=== PATIENT | male | born 1955 | race African-American/Black ===

== ENCOUNTER 2019-06-09 06:03 | Inpatient (IN) | payer MEDICAID ==
[2019-06-09] VITALS (51 sets, daily range): BP systolic 90–206; BP diastolic 25–107
[~2019-06-09] VITALS: Ht 182.9 cm; Wt 78.5 kg
[2019-06-09] MEDS ORDERED: DIPHENHYDRAMINE 50MG/ML VIAL IV ONE (06:45)
[2019-06-09] MEDS ORDERED: ACETAMINOPHEN 500MG TABLET PO ONE (06:45)
[2019-06-09] MEDS ORDERED: METOCLOPRAMIDE HCL 10MG/2ML VIAL IV ONE (06:45)
[2019-06-09 06:56] LABS: *AMPHETAMINES SCREEN URINE NEGATIVE (NEGATIVE); *BENZODIAZEPINES SCREEN URINE NEGATIVE (NEGATIVE)
[2019-06-09 06:57] LABS: *COCAINE SCREEN URINE PRESUMTIVE POSITIVE (NEGATIVE); CANNABINOID URINE SCREEN PRESUMTIVE POSITIVE (NEGATIVE); METHADONE URINE SCREEN NEGATIVE (NEGATIVE); OPIATES URINE SCREEN NEGATIVE (NEGATIVE); PHENCYCLIDINE URINE SCREEN NEGATIVE (NEGATIVE)
[2019-06-09 06:58] LABS: *BARBITURATES SCREEN URINE NEGATIVE (NEGATIVE)
[2019-06-09 07:28] LABS: BASOPHILS % 0.6 % (0.0-2.0); EOSINOPHILS % 0.6 % (0.0-5.0); HEMATOCRIT. 50.2 % (42.0-52.0); HEMOGLOBIN. 16.5 g/dL (14.0-18.0); MEAN CORPUSCULAR HEMOGLOBIN 30.1 pg (28.0-32.0); MEAN CORPUSCULAR VOLUME 91.4 fL (80.0-94.0); MEAN PLATELET VOLUME 9.5 fl (7.4-10.4); MONOCYTES % 5.8 % (2.0-8.0); PLATELET 227 x1000/uL (130-400); RED BLOOD CELL COUNT 5.49 mill/uL (4.7-6.1)
[2019-06-09] MEDS ORDERED: NICARDIPINE 100 MG in SODIUM CHLORIDE 0.9% 60 ML IV ONE (07:30)
[2019-06-09] MEDS ORDERED: NICARDIPINE 40MG/200ML PREMIX 200 ML IV PRN (07:30)
[2019-06-09 07:32] LABS: CHLORIDE 103 mEq/L (98-107)
[2019-06-09 07:33] LABS: INR 1.2
[2019-06-09 07:37] LABS: ETHANOL BLOOD < 10 mg/dL
[2019-06-09] MEDS: DEXT 5%/LACTATED RINGERS 1,000 ML IV SCH ×2 (08:45→13:00)
[2019-06-09] MEDS ORDERED: NICARDIPINE 100 MG in SODIUM CHLORIDE 0.9% 60 ML IV PRN (08:45)
[2019-06-09] MEDS ORDERED: MORPHINE SULFATE 2 MG/ML CPJ (NOT FOR IM USE) IV PRN (08:45)
[2019-06-09] MEDS ORDERED: LEVETIRACETAM 500MG PREMIX 100 ML IV SCH (09:00)
[2019-06-09] MEDS ORDERED: IOHEXOL-350 100 ML BOTTLE ONE (09:14)
[2019-06-09] MEDS ORDERED: BENZONATATE 100MG CAPSULE PO PRN (11:45)
[2019-06-09] MEDS ORDERED: POTASSIUM CHLORIDE INJ 40 MEQ in DEXT 5% WATER 250 ML IV SCH (13:00)
[2019-06-09] MEDS: NICARDIPINE 100 MG in SODIUM CHLORIDE 0.9% 60 ML IV PRN ×2 (13:50→18:17)
[2019-06-09] MEDS: MORPHINE SULFATE 2 MG/ML CPJ (NOT FOR IM USE) IV PRN ×2 (17:21→20:18)
[2019-06-09] MEDS ORDERED: CARV12.545 MT (19:35)
[2019-06-09] MEDS ORDERED: LISI40TA4 PO (19:35)
[2019-06-09] MEDS ORDERED: RIVA20TA PO (19:35)
[2019-06-09] MEDS: LEVETIRACETAM 500MG in SODIUM CHLORIDE 0.9% 100ML IV SCH (20:46)
[2019-06-10] VITALS (95 sets, daily range): BP systolic -4–166; BP diastolic -4–94
[2019-06-10] MEDS: MORPHINE SULFATE 2 MG/ML CPJ (NOT FOR IM USE) IV PRN ×4 (00:48→12:22)
[2019-06-10] MEDS: NICARDIPINE 100 MG in SODIUM CHLORIDE 0.9% 60 ML IV PRN ×3 (01:13→16:47)
[2019-06-10 04:59] LABS: BASOPHILS % 0.5 % (0.0-2.0); HEMATOCRIT. 47.8 % (42.0-52.0); HEMOGLOBIN. 15.7 g/dL (14.0-18.0); LYMPHOCYTES % 14.2 % (20.0-50.0); MEAN PLATELET VOLUME 9.8 fl (7.4-10.4); MONOCYTES % 4.5 % (2.0-8.0); NEUTROPHILS % 80.8 % (40.0-76.0); PLATELET 268 x1000/uL (130-400); RED BLOOD CELL COUNT 5.25 mill/uL (4.7-6.1); RED CELL DISTRIBUTION WIDTH 13.9 % (11.6-14.6)
[2019-06-10 05:05] LABS: CHLORIDE 104 mEq/L (98-107)
[2019-06-10] MEDS: DEXT 5%/LACTATED RINGERS 1,000 ML IV SCH ×2 (05:30→17:22)
[2019-06-10] MEDS ORDERED: FUROSEMIDE 20MG/2ML VIAL IVP SCH (06:15)
[2019-06-10] MEDS: DEXAMETHASONE 4MG/ML 1ML VIAL IV SCH ×4 (06:26→23:13)
[2019-06-10] MEDS: HYDRALAZINE 20MG/ML VIAL IV PRN (07:22)
[2019-06-10] MEDS ORDERED: MANNITOL 20% 100 ML IV SCH (08:00)
[2019-06-10] MEDS ORDERED: MANNITOL 20% (20GM/100ML) BAG 500ML PREMIX IV SCH (08:00)
[2019-06-10] MEDS: LEVETIRACETAM 500MG in SODIUM CHLORIDE 0.9% 100ML IV SCH ×2 (08:41→21:53)
[2019-06-10] MEDS: PANTOPRAZOLE SODIUM 40 MG/VIAL IV SCH (08:41)
[2019-06-10] MEDS ORDERED: THROMBIN (BOVINE) 5000 UNITS/VIAL TOP ONE ×2 (09:15→09:16)
[2019-06-10] MEDS ORDERED: BACITRACIN 15GM TUBE TOP ONE (09:15)
[2019-06-10] MEDS ORDERED: LIDOCAINE HCL/EPINEPHRINE 1%-EPI 1:100,000 20 ML VIAL ONE (09:16)
[2019-06-10] MEDS ORDERED: BACITRACIN 50,000 UNITS/VIAL ONE (09:17)
[2019-06-10] MEDS ORDERED: MIDAZOLAM HCL 2 MG/2 ML VIAL ONE (09:35)
[2019-06-10] MEDS ORDERED: PROPOFOL 200MG/20ML VIAL IV ONE (09:35)
[2019-06-10] MEDS ORDERED: FENTANYL CITRATE/PF 50MCG/ML 2ML VIAL ONE (09:35)
[2019-06-10] MEDS ORDERED: GLYCOPYRROLATE 0.2 MG/ML 2ML VIAL ONE (09:35)
[2019-06-10] MEDS ORDERED: ROCURONIUM BROMIDE 10MG/ML VIAL 5ML IV ONE (09:35)
[2019-06-10] MEDS ORDERED: NEOSTIGMINE METHYLSULFATE 1MG/ML 10 ML VIAL ONE (09:35)
[2019-06-10] MEDS ORDERED: DEXAMETHASONE 4MG/ML 1ML VIAL ONE (10:05)
[2019-06-10] MEDS ORDERED: ONDANSETRON HCL 4MG/2ML INJ ONE (10:13)
[2019-06-10] MEDS ORDERED: HYDROMORPHONE HCL/PF 2MG/ML (OR) ONE (10:53)
[2019-06-10 11:52] LABS: BG CARBOXYHEMOGLOBIN 0.8 % (0.5-1.5); BG DEOXYHEMOGLOBIN 0.2 % (0.0-5.0); BG FRACTION INSPIRED OXYGEN 100; BG HCO3 ACT 24.7 mmol/L (22.0-26.0); BG METHEMOGLOBIN 0.5 % (0.0-1.5); BG OXYGEN SATURATION 99.8 % (92.0-98.5); BG OXYHEMOGLOBIN 98.5 % (94.0-97.0); BG PCO2 40.4 mmHg (35.0-45.0); BG PH 7.404 (7.350-7.450); BG SAMPLE SITE RIGHT RADIAL; BG TIDAL VOLUME(mL) 500 mL; BG TOTAL HEMOGLOBIN 15.8 g/dL (12.0-18.0); BG VENT MODE VENT - A/C; BG VENT RATE 12 set
[2019-06-10] MEDS: PROPOFOL 10MG/ML 100ML 100 ML IV PRN ×3 (12:21→20:38)
[2019-06-10] MEDS: IPRATROPIUM/ALBUTEROL 0.5-3(2.5)MG/3ML NEB HHN SCH ×2 (12:50→20:23)
[2019-06-10] MEDS ORDERED: PHENYTOIN SODIUM 500 MG in SODIUM CHLORIDE 0.9% 50 ML IV NR (13:00)
[2019-06-10] MEDS ORDERED: POTASSIUM CHLORIDE INJ 40 MEQ in DEXT 5% WATER 250 ML IV SCH (16:00)
[2019-06-10] MEDS: PHENYTOIN SODIUM 100MG/2ML VIAL IV SCH ×2 (17:07→23:05)
[2019-06-10] MEDS: CEFAZOLIN 1000MG PREMIX 50 ML IV SCH (17:07)
[2019-06-11] VITALS (98 sets, daily range): BP systolic -6–147; BP diastolic -6–87
[2019-06-11] MEDS: MORPHINE SULFATE 2 MG/ML CPJ (NOT FOR IM USE) IV PRN ×5 (00:20→21:37)
[2019-06-11] MEDS: PROPOFOL 10MG/ML 100ML 100 ML IV PRN ×6 (01:17→20:31)
[2019-06-11] MEDS: IPRATROPIUM/ALBUTEROL 0.5-3(2.5)MG/3ML NEB HHN SCH ×4 (02:01→20:20)
[2019-06-11] MEDS: CEFAZOLIN 1000MG PREMIX 50 ML IV SCH ×2 (02:08→09:37)
[2019-06-11] MEDS: HYDRALAZINE 20MG/ML VIAL IV PRN (02:26)
[2019-06-11] MEDS: NICARDIPINE 100 MG in SODIUM CHLORIDE 0.9% 60 ML IV PRN ×2 (03:03→10:11)
[2019-06-11] MEDS: MORPHINE SULFATE 10 MG/ML CPJ IV PRN ×2 (03:14→05:50)
[2019-06-11 05:40] LABS: HEMATOCRIT. 43.1 % (42.0-52.0); MEAN CORPUSCULAR HEMOGLOBIN 29.8 pg (28.0-32.0); MEAN CORPUSCULAR VOLUME 91.5 fL (80.0-94.0); MEAN PLATELET VOLUME 9.9 fl (7.4-10.4); PLATELET 236 x1000/uL (130-400); RED BLOOD CELL COUNT 4.71 mill/uL (4.7-6.1); RED CELL DISTRIBUTION WIDTH 14.5 % (11.6-14.6)
[2019-06-11] MEDS: DEXAMETHASONE 4MG/ML 1ML VIAL IV SCH ×4 (06:00→23:09)
[2019-06-11] MEDS: PHENYTOIN SODIUM 100MG/2ML VIAL IV SCH ×3 (06:00→21:02)
[2019-06-11 08:08] LABS: BG BASE EXCESS -1.6 mmol/L (-2.0-2.0); BG CARBOXYHEMOGLOBIN 0.3 % (0.5-1.5); BG DEOXYHEMOGLOBIN 3.3 % (0.0-5.0); BG FRACTION INSPIRED OXYGEN 40; BG HCO3 ACT 23.8 mmol/L (22.0-26.0); BG METHEMOGLOBIN 0.3 % (0.0-1.5); BG OXYGEN SATURATION 96.7 % (92.0-98.5); BG OXYHEMOGLOBIN 96.1 % (94.0-97.0); BG PCO2 42.4 mmHg (35.0-45.0); BG PH 7.367 (7.350-7.450); BG SAMPLE SITE RIGHT RADIAL; BG TIDAL VOLUME(mL) 500 mL; BG TOTAL HEMOGLOBIN 15.1 g/dL (12.0-18.0); BG VENT MODE VENT - A/C; BG VENT RATE 12 set
[2019-06-11] MEDS: LEVETIRACETAM 500MG in SODIUM CHLORIDE 0.9% 100ML IV SCH ×2 (08:13→20:31)
[2019-06-11] MEDS: PANTOPRAZOLE SODIUM 40 MG/VIAL IV SCH (08:13)
[2019-06-11 09:26] LABS: PLATELET ESTIMATE NORMAL
[2019-06-11] MEDS ORDERED: PIPERACILLIN/TAZOBACTAM 3.375 G in DEXT 5% WATER 100 ML IV SCH (10:15)
[2019-06-11] MEDS: PIPERACILLIN/TAZOBACTAM 2.25 G in DEXTROSE 5% WATER 50 ML IV SCH ×3 (12:30→23:09)
[2019-06-11] MEDS: DEXT 5%/LACTATED RINGERS 1,000 ML IV SCH (12:31)
[2019-06-11 17:04] LABS: CLARITY URINE TURBID (CLEAR); COLOR URINE AMBER (YELLOW); KETONES URINE NEGATIVE (NEGATIVE); LEUKOCYTE ESTERASE URINE 1+ (NEGATIVE); NITRITE URINE NEGATIVE (NEGATIVE); OCCULT BLOOD URINE 3+ (NEGATIVE); PROTEIN URINE 1+ (NEGATIVE); SPECIFIC GRAVITY URINE 1.026 (1.005-1.030); UROBILINOGEN URINE 0.2 E.U./dL (0.2-1.0)
[2019-06-12] VITALS (102 sets, daily range): BP systolic -7–164; BP diastolic -7–104
[2019-06-12] MEDS: DEXT 5%/LACTATED RINGERS 1,000 ML IV SCH ×3 (00:02→19:54)
[2019-06-12] MEDS: PROPOFOL 10MG/ML 100ML 100 ML IV PRN ×5 (01:00→19:33)
[2019-06-12] MEDS: IPRATROPIUM/ALBUTEROL 0.5-3(2.5)MG/3ML NEB HHN SCH ×3 (02:08→20:21)
[2019-06-12] MEDS: PHENYTOIN SODIUM 100MG/2ML VIAL IV SCH ×3 (05:39→20:43)
[2019-06-12] MEDS: PIPERACILLIN/TAZOBACTAM 2.25 G in DEXTROSE 5% WATER 50 ML IV SCH ×3 (05:39→18:45)
[2019-06-12] MEDS: DEXAMETHASONE 4MG/ML 1ML VIAL IV SCH ×2 (05:39→20:43)
[2019-06-12] MEDS: MORPHINE SULFATE 2 MG/ML CPJ (NOT FOR IM USE) IV PRN ×6 (06:23→22:36)
[2019-06-12 06:24] LABS: PHOSPHORUS 6.7 mg/dL (2.5-4.9)
[2019-06-12] MEDS ORDERED: CALCIUM GLUCONATE 1,000 MG in DEXT 5% WATER 90 ML IV ONE (08:00)
[2019-06-12] MEDS: LEVETIRACETAM 500MG in SODIUM CHLORIDE 0.9% 100ML IV SCH ×2 (08:10→20:44)
[2019-06-12] MEDS: PANTOPRAZOLE SODIUM 40 MG/VIAL IV SCH (08:33)
[2019-06-12 09:41] LABS: BG BASE EXCESS 0.2 mmol/L (-2.0-2.0); BG CARBOXYHEMOGLOBIN 0.5 % (0.5-1.5); BG FRACTION INSPIRED OXYGEN 40; BG HCO3 ACT 25.4 mmol/L (22.0-26.0); BG METHEMOGLOBIN 0.4 % (0.0-1.5); BG OXYHEMOGLOBIN 97.1 % (94.0-97.0); BG PH 7.389 (7.350-7.450); BG PO2 115.9 mmHg (75.0-100.0); BG SAMPLE SITE RIGHT RADIAL; BG TIDAL VOLUME(mL) 500 mL; BG TOTAL HEMOGLOBIN 15.3 g/dL (12.0-18.0); BG VENT MODE VENT - A/C; BG VENT RATE 12 set
[2019-06-12] MEDS: IPRATROPIUM/ALBUTEROL 0.5-3(2.5)MG/3ML NEB HHN PRN ×2 (12:38→16:50)
[2019-06-12] MEDS: NICARDIPINE 100 MG in SODIUM CHLORIDE 0.9% 60 ML IV PRN (14:45)
[2019-06-12] MEDS: HYDRALAZINE 20MG/ML VIAL IV PRN (17:15)
[2019-06-13] VITALS (102 sets, daily range): BP systolic 95–198; BP diastolic 58–131
[2019-06-13] MEDS: PIPERACILLIN/TAZOBACTAM 2.25 G in DEXTROSE 5% WATER 50 ML IV SCH ×4 (00:15→18:10)
[2019-06-13] MEDS: PROPOFOL 10MG/ML 100ML 100 ML IV PRN ×5 (00:16→21:59)
[2019-06-13] MEDS: MORPHINE SULFATE 2 MG/ML CPJ (NOT FOR IM USE) IV PRN ×5 (01:01→20:27)
[2019-06-13] MEDS: NICARDIPINE 100 MG in SODIUM CHLORIDE 0.9% 60 ML IV PRN ×2 (01:17→16:15)
[2019-06-13] MEDS: IPRATROPIUM/ALBUTEROL 0.5-3(2.5)MG/3ML NEB HHN SCH ×4 (01:25→19:47)
[2019-06-13 05:04] LABS: HEMATOCRIT. 43.9 % (42.0-52.0); HEMOGLOBIN. 14.2 g/dL (14.0-18.0); MEAN CORPUSCULAR HEMOGLOBIN 29.4 pg (28.0-32.0); MEAN PLATELET VOLUME 9.9 fl (7.4-10.4); PLATELET 223 x1000/uL (130-400); RED BLOOD CELL COUNT 4.82 mill/uL (4.7-6.1); RED CELL DISTRIBUTION WIDTH 14.6 % (11.6-14.6)
[2019-06-13] MEDS: HYDRALAZINE 20MG/ML VIAL IV PRN ×2 (05:30→20:30)
[2019-06-13] MEDS: DEXT 5%/LACTATED RINGERS 1,000 ML IV SCH ×2 (06:18→15:08)
[2019-06-13] MEDS: MORPHINE SULFATE 10 MG/ML CPJ IV PRN (06:33)
[2019-06-13] MEDS: PHENYTOIN SODIUM 100MG/2ML VIAL IV SCH ×3 (06:46→21:41)
[2019-06-13 07:43] LABS: PLATELET ESTIMATE NORMAL
[2019-06-13] MEDS ORDERED: KCL 20MEQ/100ML PREMIX 100 ML IV SCH (08:00)
[2019-06-13] MEDS ORDERED: MORPHINE SULFATE 4 MG/ML CPJ (NOT FOR IM USE) IV SCH (08:15)
[2019-06-13] MEDS: PANTOPRAZOLE SODIUM 40 MG/VIAL IV SCH (08:20)
[2019-06-13] MEDS: LEVETIRACETAM 500MG in SODIUM CHLORIDE 0.9% 100ML IV SCH ×2 (08:20→21:41)
[2019-06-13] MEDS: DEXAMETHASONE 4MG/ML 1ML VIAL IV SCH ×2 (08:21→21:41)
[2019-06-13 08:57] LABS: BG BASE EXCESS -1.6 mmol/L (-2.0-2.0); BG CARBOXYHEMOGLOBIN 0.3 % (0.5-1.5); BG DEOXYHEMOGLOBIN 1.4 % (0.0-5.0); BG HCO3 ACT 23.2 mmol/L (22.0-26.0); BG METHEMOGLOBIN 0.3 % (0.0-1.5); BG OXYGEN SATURATION 98.6 % (92.0-98.5); BG PCO2 39.8 mmHg (35.0-45.0); BG PH 7.384 (7.350-7.450); BG PO2 133.7 mmHg (75.0-100.0); BG SAMPLE SITE LEFT RADIAL; BG TIDAL VOLUME(mL) 500 mL; BG TOTAL HEMOGLOBIN 15.8 g/dL (12.0-18.0); BG VENT MODE VENT - A/C; BG VENT RATE 12 set
[2019-06-14] VITALS (108 sets, daily range): BP systolic 94–183; BP diastolic 56–105
[2019-06-14] MEDS: MORPHINE SULFATE 2 MG/ML CPJ (NOT FOR IM USE) IV PRN ×3 (00:06→17:21)
[2019-06-14] MEDS: PIPERACILLIN/TAZOBACTAM 2.25 G in DEXTROSE 5% WATER 50 ML IV SCH ×4 (00:06→17:17)
[2019-06-14] MEDS: NICARDIPINE 100 MG in SODIUM CHLORIDE 0.9% 60 ML IV PRN ×4 (00:51→23:48)
[2019-06-14] MEDS: PROPOFOL 10MG/ML 100ML 100 ML IV PRN ×3 (01:04→08:44)
[2019-06-14] MEDS: DEXT 5%/LACTATED RINGERS 1,000 ML IV SCH ×2 (01:05→14:26)
[2019-06-14] MEDS: IPRATROPIUM/ALBUTEROL 0.5-3(2.5)MG/3ML NEB HHN SCH ×4 (02:28→20:31)
[2019-06-14 05:16] LABS: HEMATOCRIT. 50.1 % (42.0-52.0); HEMOGLOBIN. 16.6 g/dL (14.0-18.0); MEAN CORPUSCULAR HEMOGLOBIN 30.3 pg (28.0-32.0); MEAN CORPUSCULAR VOLUME 91.3 fL (80.0-94.0); MEAN PLATELET VOLUME 9.2 fl (7.4-10.4); PLATELET 245 x1000/uL (130-400); RED BLOOD CELL COUNT 5.48 mill/uL (4.7-6.1); RED CELL DISTRIBUTION WIDTH 14.3 % (11.6-14.6)
[2019-06-14 05:35] LABS: PHOSPHORUS 5.8 mg/dL (2.5-4.9)
[2019-06-14] MEDS: PHENYTOIN SODIUM 100MG/2ML VIAL IV SCH ×3 (06:00→21:50)
[2019-06-14] MEDS: MORPHINE SULFATE 10 MG/ML CPJ IV PRN ×2 (08:02→10:54)
[2019-06-14 08:21] LABS: PLATELET ESTIMATE NORMAL
[2019-06-14] MEDS: PANTOPRAZOLE SODIUM 40 MG/VIAL IV SCH (08:42)
[2019-06-14] MEDS: DEXAMETHASONE 4MG/ML 1ML VIAL IV SCH ×2 (08:43→21:50)
[2019-06-14] MEDS: LEVETIRACETAM 500MG in SODIUM CHLORIDE 0.9% 100ML IV SCH ×2 (08:43→21:50)
[2019-06-14] MEDS: HYDRALAZINE 20MG/ML VIAL IV PRN ×3 (11:43→21:50)
[2019-06-14 12:36] LABS: BG CARBOXYHEMOGLOBIN 0.4 % (0.5-1.5); BG CPAP (cmH2O) 0 cm(H2O); BG DEOXYHEMOGLOBIN 1.4 % (0.0-5.0); BG HCO3 ACT 23.5 mmol/L (22.0-26.0); BG METHEMOGLOBIN 0.5 % (0.0-1.5); BG OXYGEN SATURATION 98.6 % (92.0-98.5); BG OXYHEMOGLOBIN 97.7 % (94.0-97.0); BG PCO2 38.6 mmHg (35.0-45.0); BG PH 7.402 (7.350-7.450); BG SAMPLE SITE LEFT BRACHIAL; BG TOTAL HEMOGLOBIN 17.2 g/dL (12.0-18.0); BG VENT MODE VENT - CPAP
[2019-06-14] MEDS ORDERED: MORPHINE SULFATE 4 MG/ML CPJ (NOT FOR IM USE) IV PRN (13:00)
[2019-06-14] MEDS ORDERED: MORPHINE SULFATE 2 MG/ML CPJ (NOT FOR IM USE) IV SCH (13:05)
[2019-06-14] MEDS ORDERED: MORPHINE SULFATE 10 MG/ML CPJ IV PRN (13:15)
[2019-06-15] VITALS (94 sets, daily range): BP systolic 125–177; BP diastolic 50–115
[2019-06-15] MEDS: PIPERACILLIN/TAZOBACTAM 2.25 G in DEXTROSE 5% WATER 50 ML IV SCH ×5 (01:28→23:32)
[2019-06-15] MEDS: MORPHINE SULFATE 4 MG/ML CPJ (NOT FOR IM USE) IV PRN ×8 (01:40→23:33)
[2019-06-15] MEDS: IPRATROPIUM/ALBUTEROL 0.5-3(2.5)MG/3ML NEB HHN SCH ×4 (01:47→21:11)
[2019-06-15 05:44] LABS: HEMATOCRIT. 45.6 % (42.0-52.0); MEAN CORPUSCULAR HEMOGLOBIN 29.7 pg (28.0-32.0); MEAN CORPUSCULAR VOLUME 90.5 fL (80.0-94.0); MEAN PLATELET VOLUME 9.3 fl (7.4-10.4); PLATELET 248 x1000/uL (130-400); RED BLOOD CELL COUNT 5.05 mill/uL (4.7-6.1); RED CELL DISTRIBUTION WIDTH 14.2 % (11.6-14.6)
[2019-06-15] MEDS: PHENYTOIN SODIUM 100MG/2ML VIAL IV SCH ×3 (06:03→21:21)
[2019-06-15] MEDS: NICARDIPINE 100 MG in SODIUM CHLORIDE 0.9% 60 ML IV PRN ×3 (06:29→21:24)
[2019-06-15] MEDS: HYDRALAZINE 20MG/ML VIAL IV PRN ×2 (06:29→19:38)
[2019-06-15] MEDS: DEXT 5%/LACTATED RINGERS 1,000 ML IV SCH ×2 (06:29→22:17)
[2019-06-15 07:55] LABS: PLATELET ESTIMATE NORMAL
[2019-06-15 08:06] LABS: BG BASE EXCESS 0.6 mmol/L (-2.0-2.0); BG CARBOXYHEMOGLOBIN 0.6 % (0.5-1.5); BG DEOXYHEMOGLOBIN 5.9 % (0.0-5.0); BG FRACTION INSPIRED OXYGEN 21; BG METHEMOGLOBIN 0.4 % (0.0-1.5); BG OXYHEMOGLOBIN 93.1 % (94.0-97.0); BG PCO2 35.1 mmHg (35.0-45.0); BG PH 7.453 (7.350-7.450); BG PO2 69.1 mmHg (75.0-100.0); BG SAMPLE SITE RIGHT RADIAL; BG TOTAL HEMOGLOBIN 15.8 g/dL (12.0-18.0); BG VENT MODE ROOM AIR
[2019-06-15] MEDS: PANTOPRAZOLE SODIUM 40 MG/VIAL IV SCH (08:16)
[2019-06-15] MEDS: LEVETIRACETAM 500MG in SODIUM CHLORIDE 0.9% 100ML IV SCH ×2 (08:16→21:20)
[2019-06-15] MEDS: DEXAMETHASONE 4MG/ML 1ML VIAL IV SCH ×2 (08:16→20:46)
[2019-06-15] MEDS: HYDRALAZINE HCL 25MG TABLET PO SCH ×2 (13:22→21:21)
[2019-06-16] VITALS (97 sets, daily range): BP systolic 69–172; BP diastolic 44–124
[2019-06-16] MEDS: IPRATROPIUM/ALBUTEROL 0.5-3(2.5)MG/3ML NEB HHN SCH ×4 (02:27→21:06)
[2019-06-16] MEDS: NICARDIPINE 100 MG in SODIUM CHLORIDE 0.9% 60 ML IV PRN ×3 (05:11→23:43)
[2019-06-16 05:49] LABS: HEMATOCRIT. 42.8 % (42.0-52.0); HEMOGLOBIN. 14.2 g/dL (14.0-18.0); MEAN CORPUSCULAR HEMOGLOBIN 30.1 pg (28.0-32.0); MEAN CORPUSCULAR VOLUME 90.8 fL (80.0-94.0); MEAN PLATELET VOLUME 9.1 fl (7.4-10.4); PLATELET 233 x1000/uL (130-400); RED BLOOD CELL COUNT 4.71 mill/uL (4.7-6.1); RED CELL DISTRIBUTION WIDTH 14.6 % (11.6-14.6)
[2019-06-16] MEDS: PHENYTOIN SODIUM 100MG/2ML VIAL IV SCH ×2 (05:52→13:53)
[2019-06-16] MEDS: PIPERACILLIN/TAZOBACTAM 2.25 G in DEXTROSE 5% WATER 50 ML IV SCH ×4 (05:52→23:42)
[2019-06-16] MEDS: HYDRALAZINE HCL 25MG TABLET PO SCH ×3 (05:54→20:53)
[2019-06-16] MEDS: HYDRALAZINE 20MG/ML VIAL IV PRN ×3 (06:55→21:45)
[2019-06-16 07:39] LABS: PLATELET ESTIMATE NORMAL
[2019-06-16] MEDS ORDERED: SODIUM CHLORIDE 0.45% 1,000 ML IV SCH (08:15)
[2019-06-16] MEDS: LEVETIRACETAM 500MG in SODIUM CHLORIDE 0.9% 100ML IV SCH ×2 (08:46→20:44)
[2019-06-16] MEDS: PANTOPRAZOLE SODIUM 40 MG/VIAL IV SCH (08:46)
[2019-06-16] MEDS: DEXAMETHASONE 4MG/ML 1ML VIAL IV SCH ×2 (08:46→20:44)
[2019-06-16] MEDS: MORPHINE SULFATE 4 MG/ML CPJ (NOT FOR IM USE) IV PRN ×4 (09:52→23:42)
[2019-06-16] MEDS ORDERED: LOSARTAN POTASSIUM 25 MG TABLET PO SCH (10:15)
[2019-06-16] MEDS: AMLODIPINE 10MG TABLET PO SCH (12:39)
[2019-06-16] MEDS: PHENYTOIN SODIUM EXTENDED 100MG CAPSULE PO SCH (20:54)
[2019-06-17] VITALS (84 sets, daily range): BP systolic 113–196; BP diastolic 62–156
[2019-06-17] MEDS: IPRATROPIUM/ALBUTEROL 0.5-3(2.5)MG/3ML NEB HHN SCH ×4 (01:01→19:59)
[2019-06-17] MEDS: HYDRALAZINE 20MG/ML VIAL IV PRN ×2 (04:13→11:11)
[2019-06-17] MEDS: MORPHINE SULFATE 4 MG/ML CPJ (NOT FOR IM USE) IV PRN ×6 (04:13→23:20)
[2019-06-17 05:22] LABS: HEMOGLOBIN. 15.7 g/dL (14.0-18.0); MEAN CORPUSCULAR HEMOGLOBIN 29.6 pg (28.0-32.0); MEAN CORPUSCULAR VOLUME 90.8 fL (80.0-94.0); MEAN PLATELET VOLUME 9.3 fl (7.4-10.4); PLATELET 244 x1000/uL (130-400); RED BLOOD CELL COUNT 5.29 mill/uL (4.7-6.1); RED CELL DISTRIBUTION WIDTH 14.5 % (11.6-14.6)
[2019-06-17 05:29] LABS: CHLORIDE 114 mEq/L (98-107)
[2019-06-17] MEDS: HYDRALAZINE HCL 25MG TABLET PO SCH (05:33)
[2019-06-17] MEDS: PHENYTOIN SODIUM EXTENDED 100MG CAPSULE PO SCH (05:33)
[2019-06-17] MEDS: PIPERACILLIN/TAZOBACTAM 2.25 G in DEXTROSE 5% WATER 50 ML IV SCH ×3 (05:34→18:18)
[2019-06-17 05:42] LABS: PHOSPHORUS 2.9 mg/dL (2.5-4.9)
[2019-06-17] MEDS: NICARDIPINE 100 MG in SODIUM CHLORIDE 0.9% 60 ML IV PRN (07:26)
[2019-06-17] MEDS: DEXAMETHASONE 4MG/ML 1ML VIAL IV SCH ×2 (07:27→09:27)
[2019-06-17] MEDS: CLONIDINE 0.1MG TABLET PO SCH ×3 (07:27→21:27)
[2019-06-17 07:43] LABS: PLATELET ESTIMATE NORMAL
[2019-06-17 08:05] LABS: BG BASE EXCESS 0.2 mmol/L (-2.0-2.0); BG DEOXYHEMOGLOBIN 5.2 % (0.0-5.0); BG FRACTION INSPIRED OXYGEN 28; BG METHEMOGLOBIN 0.3 % (0.0-1.5); BG OXYGEN SATURATION 94.7 % (92.0-98.5); BG OXYHEMOGLOBIN 93.5 % (94.0-97.0); BG PCO2 32.6 mmHg (35.0-45.0); BG PH 7.466 (7.350-7.450); BG PO2 70.4 mmHg (75.0-100.0); BG SAMPLE SITE LEFT RADIAL; BG VENT MODE NASAL CANNULA
[2019-06-17] MEDS: PANTOPRAZOLE SODIUM 40 MG/VIAL IV SCH (08:22)
[2019-06-17] MEDS: LEVETIRACETAM 500MG in SODIUM CHLORIDE 0.9% 100ML IV SCH (08:22)
[2019-06-17] MEDS: LOSARTAN POTASSIUM 50 MG TABLET PO SCH ×2 (08:23→21:27)
[2019-06-17] MEDS: AMLODIPINE 10MG TABLET PO SCH (08:23)
[2019-06-17] MEDS: HYDRALAZINE HCL 100MG TABLET PO SCH ×2 (14:25→21:27)
[2019-06-18] VITALS (75 sets, daily range): BP systolic 112–194; BP diastolic 44–125
[2019-06-18] MEDS: PIPERACILLIN/TAZOBACTAM 2.25 G in DEXTROSE 5% WATER 50 ML IV SCH ×3 (00:38→12:00)
[2019-06-18] MEDS: NICARDIPINE 100 MG in SODIUM CHLORIDE 0.9% 60 ML IV PRN ×2 (00:41→12:48)
[2019-06-18] MEDS: MORPHINE SULFATE 4 MG/ML CPJ (NOT FOR IM USE) IV PRN ×6 (01:22→19:18)
[2019-06-18] MEDS: IPRATROPIUM/ALBUTEROL 0.5-3(2.5)MG/3ML NEB HHN SCH ×4 (01:41→20:34)
[2019-06-18 05:30] LABS: BASOPHILS % 0.5 % (0.0-2.0); EOSINOPHILS % 0.1 % (0.0-5.0); HEMATOCRIT. 45.4 % (42.0-52.0); LYMPHOCYTES % 8.2 % (20.0-50.0); MEAN CORPUSCULAR HEMOGLOBIN 29.7 pg (28.0-32.0); MEAN CORPUSCULAR VOLUME 89.9 fL (80.0-94.0); MEAN PLATELET VOLUME 9.2 fl (7.4-10.4); MONOCYTES % 8.3 % (2.0-8.0); NEUTROPHILS % 82.9 % (40.0-76.0); PLATELET 213 x1000/uL (130-400); RED BLOOD CELL COUNT 5.05 mill/uL (4.7-6.1); RED CELL DISTRIBUTION WIDTH 14.1 % (11.6-14.6)
[2019-06-18 05:42] LABS: CHLORIDE 110 mEq/L (98-107)
[2019-06-18] MEDS: HYDRALAZINE HCL 100MG TABLET PO SCH ×3 (06:11→22:04)
[2019-06-18] MEDS: CLONIDINE 0.1MG TABLET PO SCH (06:12)
[2019-06-18] MEDS: DEXAMETHASONE 4MG/ML 1ML VIAL IV SCH (08:22)
[2019-06-18] MEDS: PANTOPRAZOLE SODIUM 40 MG/VIAL IV SCH (08:22)
[2019-06-18] MEDS: LOSARTAN POTASSIUM 50 MG TABLET PO SCH ×2 (08:31→22:04)
[2019-06-18] MEDS: NIFEDIPINE XL 60MG TAB PO SCH ×2 (08:32→22:19)
[2019-06-18] MEDS: CARVEDILOL 12.5MG TABLET PO SCH ×2 (09:08→22:04)
[2019-06-18] MEDS: CLONIDINE 0.2MG TABLET PO SCH ×2 (14:27→22:05)
[2019-06-19] VITALS (76 sets, daily range): BP systolic 102–192; BP diastolic 44–138
[2019-06-19] MEDS: IPRATROPIUM/ALBUTEROL 0.5-3(2.5)MG/3ML NEB HHN SCH ×4 (01:26→20:33)
[2019-06-19] MEDS: NICARDIPINE 100 MG in SODIUM CHLORIDE 0.9% 60 ML IV PRN (02:54)
[2019-06-19 05:29] LABS: BASOPHILS % 0.6 % (0.0-2.0); EOSINOPHILS % 2.9 % (0.0-5.0); HEMATOCRIT. 46.5 % (42.0-52.0); HEMOGLOBIN. 15.2 g/dL (14.0-18.0); LYMPHOCYTES % 11.7 % (20.0-50.0); MEAN CORPUSCULAR HEMOGLOBIN 29.6 pg (28.0-32.0); MEAN CORPUSCULAR VOLUME 90.3 fL (80.0-94.0); MEAN PLATELET VOLUME 9.5 fl (7.4-10.4); NEUTROPHILS % 75.8 % (40.0-76.0); PLATELET 198 x1000/uL (130-400); RED BLOOD CELL COUNT 5.15 mill/uL (4.7-6.1); RED CELL DISTRIBUTION WIDTH 14.1 % (11.6-14.6)
[2019-06-19 05:31] LABS: CHLORIDE 110 mEq/L (98-107)
[2019-06-19] MEDS: HYDRALAZINE HCL 100MG TABLET PO SCH ×3 (07:10→22:04)
[2019-06-19] MEDS: CLONIDINE 0.2MG TABLET PO SCH ×3 (07:11→22:04)
[2019-06-19] MEDS: PANTOPRAZOLE SODIUM 40 MG/VIAL IV SCH (08:26)
[2019-06-19] MEDS: DEXAMETHASONE 4MG/ML 1ML VIAL IV SCH (08:26)
[2019-06-19] MEDS: CARVEDILOL 12.5MG TABLET PO SCH ×2 (08:26→22:02)
[2019-06-19] MEDS: LOSARTAN POTASSIUM 50 MG TABLET PO SCH ×2 (08:27→22:03)
[2019-06-19] MEDS: NIFEDIPINE XL 60MG TAB PO SCH ×2 (08:27→22:03)
[2019-06-19] MEDS: LACTOBACILLUS GG CAPSULE PO SCH (12:36)
[2019-06-19] MEDS: TRIAMTERENE/HYDROCHLOROTHIAZID 75/50MG TABLET PO SCH (16:17)
[2019-06-19] MEDS: MORPHINE SULFATE 4 MG/ML CPJ (NOT FOR IM USE) IV PRN ×2 (20:10→21:06)
[2019-06-19] MEDS: ONDANSETRON HCL 4MG/2ML INJ IV PRN (22:04)
[2019-06-20] VITALS (13 sets, daily range): BP systolic 127–190; BP diastolic 72–129
[2019-06-20] MEDS: IPRATROPIUM/ALBUTEROL 0.5-3(2.5)MG/3ML NEB HHN SCH ×4 (00:22→20:40)
[2019-06-20] MEDS: MORPHINE SULFATE 4 MG/ML CPJ (NOT FOR IM USE) IV PRN (01:04)
[2019-06-20] MEDS: HYDRALAZINE HCL 100MG TABLET PO SCH ×3 (05:38→21:45)
[2019-06-20] MEDS: CLONIDINE 0.2MG TABLET PO SCH (05:55)
[2019-06-20] MEDS: ONDANSETRON HCL 4MG/2ML INJ IV PRN ×2 (06:22→22:04)
[2019-06-20] MEDS: HYDRALAZINE 20MG/ML VIAL IV PRN ×2 (06:22→18:32)
[2019-06-20 07:33] LABS: CHLORIDE 108 mEq/L (98-107)
[2019-06-20 07:50] LABS: HEMATOCRIT. 42.4 % (42.0-52.0); HEMOGLOBIN. 14.3 g/dL (14.0-18.0); MEAN CORPUSCULAR HEMOGLOBIN 30.3 pg (28.0-32.0); MEAN CORPUSCULAR VOLUME 89.6 fL (80.0-94.0); MEAN PLATELET VOLUME 9.4 fl (7.4-10.4); PLATELET 165 x1000/uL (130-400); RED BLOOD CELL COUNT 4.73 mill/uL (4.7-6.1); RED CELL DISTRIBUTION WIDTH 14.1 % (11.6-14.6)
[2019-06-20] MEDS: PANTOPRAZOLE SODIUM 40 MG/VIAL IV SCH (09:19)
[2019-06-20] MEDS: DEXAMETHASONE 4MG/ML 1ML VIAL IV SCH (09:19)
[2019-06-20] MEDS: CARVEDILOL 12.5MG TABLET PO SCH ×2 (09:21→20:23)
[2019-06-20] MEDS: LOSARTAN POTASSIUM 50 MG TABLET PO SCH ×2 (09:22→20:22)
[2019-06-20] MEDS: MULTIVITAMINS,THER W-MINERALS TABLET PO SCH (09:22)
[2019-06-20] MEDS: LACTOBACILLUS GG CAPSULE PO SCH (09:22)
[2019-06-20] MEDS: NIFEDIPINE XL 60MG TAB PO SCH ×2 (09:22→20:23)
[2019-06-20 11:13] LABS: PLATELET ESTIMATE NORMAL
[2019-06-20] MEDS: TRIAMTERENE/HYDROCHLOROTHIAZID 75/50MG TABLET PO SCH (12:42)
[2019-06-20] MEDS: CLONIDINE 0.3MG TABLET PO SCH ×2 (16:15→21:45)
[2019-06-21] VITALS (12 sets, daily range): BP systolic 134–171; BP diastolic 67–105
[2019-06-21] MEDS: MORPHINE SULFATE 2 MG/ML CPJ (NOT FOR IM USE) IV PRN ×3 (00:22→09:04)
[2019-06-21] MEDS: IPRATROPIUM/ALBUTEROL 0.5-3(2.5)MG/3ML NEB HHN SCH ×4 (01:40→20:19)
[2019-06-21] MEDS: ONDANSETRON HCL 4MG/2ML INJ IV PRN (03:04)
[2019-06-21] MEDS: HYDRALAZINE HCL 100MG TABLET PO SCH ×3 (05:01→22:17)
[2019-06-21] MEDS: CLONIDINE 0.3MG TABLET PO SCH ×3 (05:01→22:59)
[2019-06-21 07:49] LABS: BASOPHILS % 0.2 % (0.0-2.0); EOSINOPHILS % 6.3 % (0.0-5.0); HEMATOCRIT. 40.3 % (42.0-52.0); HEMOGLOBIN. 13.4 g/dL (14.0-18.0); LYMPHOCYTES % 12.8 % (20.0-50.0); MEAN CORPUSCULAR HEMOGLOBIN 29.3 pg (28.0-32.0); MEAN CORPUSCULAR VOLUME 88.3 fL (80.0-94.0); MEAN PLATELET VOLUME 9.7 fl (7.4-10.4); MONOCYTES % 7.2 % (2.0-8.0); NEUTROPHILS % 73.5 % (40.0-76.0); PLATELET 168 x1000/uL (130-400); RED BLOOD CELL COUNT 4.56 mill/uL (4.7-6.1); RED CELL DISTRIBUTION WIDTH 13.8 % (11.6-14.6)
[2019-06-21] MEDS: PANTOPRAZOLE SODIUM 40 MG/VIAL IV SCH (08:12)
[2019-06-21] MEDS: DEXAMETHASONE 4MG/ML 1ML VIAL IV SCH (08:12)
[2019-06-21] MEDS: LACTOBACILLUS GG CAPSULE PO SCH (08:12)
[2019-06-21] MEDS: NIFEDIPINE XL 60MG TAB PO SCH ×2 (08:13→21:38)
[2019-06-21] MEDS: LOSARTAN POTASSIUM 50 MG TABLET PO SCH ×2 (08:13→21:39)
[2019-06-21] MEDS: MULTIVITAMINS,THER W-MINERALS TABLET PO SCH (08:14)
[2019-06-21] MEDS: TRIAMTERENE/HYDROCHLOROTHIAZID 75/50MG TABLET PO SCH (08:14)
[2019-06-21] MEDS: CARVEDILOL 12.5MG TABLET PO SCH ×2 (08:14→21:39)
[2019-06-21 08:31] LABS: CHLORIDE 103 mEq/L (98-107)
[2019-06-22] VITALS (12 sets, daily range): BP systolic 100–169; BP diastolic 42–110
[2019-06-22] MEDS: IPRATROPIUM/ALBUTEROL 0.5-3(2.5)MG/3ML NEB HHN SCH ×4 (01:16→20:45)
[2019-06-22] MEDS: HYDRALAZINE HCL 100MG TABLET PO SCH ×3 (06:27→22:48)
[2019-06-22] MEDS: CLONIDINE 0.3MG TABLET PO SCH ×3 (06:27→22:48)
[2019-06-22 07:52] LABS: BASOPHILS % 0.3 % (0.0-2.0); EOSINOPHILS % 4.3 % (0.0-5.0); HEMATOCRIT. 40.4 % (42.0-52.0); HEMOGLOBIN. 13.1 g/dL (14.0-18.0); MEAN CORPUSCULAR HEMOGLOBIN 28.9 pg (28.0-32.0); MEAN PLATELET VOLUME 9.6 fl (7.4-10.4); MONOCYTES % 7.8 % (2.0-8.0); NEUTROPHILS % 70.6 % (40.0-76.0); PLATELET 190 x1000/uL (130-400); RED BLOOD CELL COUNT 4.53 mill/uL (4.7-6.1); RED CELL DISTRIBUTION WIDTH 13.8 % (11.6-14.6)
[2019-06-22] MEDS: DEXAMETHASONE 4MG/ML 1ML VIAL IV SCH (08:21)
[2019-06-22] MEDS: PANTOPRAZOLE SODIUM 40 MG/VIAL IV SCH (08:21)
[2019-06-22] MEDS: TRIAMTERENE/HYDROCHLOROTHIAZID 75/50MG TABLET PO SCH (08:25)
[2019-06-22] MEDS: NIFEDIPINE XL 60MG TAB PO SCH ×2 (08:26→21:17)
[2019-06-22] MEDS: LACTOBACILLUS GG CAPSULE PO SCH (08:26)
[2019-06-22] MEDS: CARVEDILOL 12.5MG TABLET PO SCH ×2 (08:26→21:16)
[2019-06-22] MEDS: MULTIVITAMINS,THER W-MINERALS TABLET PO SCH (08:27)
[2019-06-22] MEDS: LOSARTAN POTASSIUM 50 MG TABLET PO SCH ×2 (08:27→21:17)
[2019-06-22 08:31] LABS: CHLORIDE 102 mEq/L (98-107)
[2019-06-23] VITALS (10 sets, daily range): BP systolic 104–138; BP diastolic 55–86
[2019-06-23] MEDS: MORPHINE SULFATE 2 MG/ML CPJ (NOT FOR IM USE) IV PRN (00:35)
[2019-06-23] MEDS: IPRATROPIUM/ALBUTEROL 0.5-3(2.5)MG/3ML NEB HHN SCH ×4 (01:15→20:42)
[2019-06-23] MEDS: ONDANSETRON HCL 4MG/2ML INJ IV PRN (02:19)
[2019-06-23] MEDS: LOSARTAN POTASSIUM 50 MG TABLET PO SCH ×2 (09:14→20:59)
[2019-06-23] MEDS: LACTOBACILLUS GG CAPSULE PO SCH (09:15)
[2019-06-23] MEDS: CARVEDILOL 12.5MG TABLET PO SCH ×2 (09:15→20:59)
[2019-06-23] MEDS: TRIAMTERENE/HYDROCHLOROTHIAZID 75/50MG TABLET PO SCH (09:15)
[2019-06-23] MEDS: MULTIVITAMINS,THER W-MINERALS TABLET PO SCH (09:15)
[2019-06-23] MEDS: DEXAMETHASONE 4MG/ML 1ML VIAL IV SCH (09:16)
[2019-06-23] MEDS: NIFEDIPINE XL 60MG TAB PO SCH ×2 (09:16→21:00)
[2019-06-23] MEDS: PANTOPRAZOLE SODIUM 40 MG/VIAL IV SCH (09:16)
[2019-06-23] MEDS: HYDRALAZINE HCL 100MG TABLET PO SCH ×2 (13:53→22:00)
[2019-06-23] MEDS: CLONIDINE 0.3MG TABLET PO SCH ×2 (13:53→22:00)
[2019-06-23 14:57] LABS: HEMOGLOBIN. 13.1 g/dL (14.0-18.0); MEAN CORPUSCULAR HEMOGLOBIN 29.3 pg (28.0-32.0); MEAN CORPUSCULAR VOLUME 89.3 fL (80.0-94.0); MEAN PLATELET VOLUME 9.3 fl (7.4-10.4); PLATELET 230 x1000/uL (130-400); RED BLOOD CELL COUNT 4.48 mill/uL (4.7-6.1); RED CELL DISTRIBUTION WIDTH 14.1 % (11.6-14.6)
[2019-06-23 15:12] LABS: CHLORIDE 101 mEq/L (98-107)
[2019-06-23 17:58] LABS: PLATELET ESTIMATE NORMAL
[2019-06-23] MEDS: LACTULOSE 20G/30ML UDC PO SCH (20:58)
[2019-06-24] VITALS (7 sets, daily range): BP systolic 102–139; BP diastolic 59–81
[2019-06-24] MEDS: IPRATROPIUM/ALBUTEROL 0.5-3(2.5)MG/3ML NEB HHN SCH ×4 (01:09→20:20)
[2019-06-24] MEDS: HYDRALAZINE HCL 100MG TABLET PO SCH (05:59)
[2019-06-24] MEDS: CLONIDINE 0.3MG TABLET PO SCH (06:00)
[2019-06-24] MEDS: MORPHINE SULFATE 2 MG/ML CPJ (NOT FOR IM USE) IV PRN ×3 (06:54→21:24)
[2019-06-24 08:06] LABS: CHLORIDE 103 mEq/L (98-107)
[2019-06-24 08:15] LABS: BASOPHILS % 0.3 % (0.0-2.0); EOSINOPHILS % 1.8 % (0.0-5.0); HEMATOCRIT. 38.9 % (42.0-52.0); HEMOGLOBIN. 12.9 g/dL (14.0-18.0); LYMPHOCYTES % 18.2 % (20.0-50.0); MEAN CORPUSCULAR HEMOGLOBIN 29.1 pg (28.0-32.0); MEAN CORPUSCULAR VOLUME 87.8 fL (80.0-94.0); MEAN PLATELET VOLUME 9.4 fl (7.4-10.4); MONOCYTES % 8.4 % (2.0-8.0); NEUTROPHILS % 71.3 % (40.0-76.0); PLATELET 247 x1000/uL (130-400); RED BLOOD CELL COUNT 4.43 mill/uL (4.7-6.1); RED CELL DISTRIBUTION WIDTH 13.6 % (11.6-14.6)
[2019-06-24] MEDS: PANTOPRAZOLE SODIUM 40 MG/VIAL IV SCH (09:42)
[2019-06-24] MEDS: NIFEDIPINE XL 60MG TAB PO SCH ×2 (09:42→21:23)
[2019-06-24] MEDS: MULTIVITAMINS,THER W-MINERALS TABLET PO SCH (09:42)
[2019-06-24] MEDS: TRIAMTERENE/HYDROCHLOROTHIAZID 75/50MG TABLET PO SCH (09:43)
[2019-06-24] MEDS: LOSARTAN POTASSIUM 50 MG TABLET PO SCH ×2 (09:43→21:23)
[2019-06-24] MEDS: CARVEDILOL 12.5MG TABLET PO SCH ×2 (09:43→21:22)
[2019-06-24] MEDS: DEXAMETHASONE 4MG/ML 1ML VIAL IV SCH (09:43)
[2019-06-24] MEDS: LACTOBACILLUS GG CAPSULE PO SCH (09:43)
[2019-06-24] MEDS: HYDRALAZINE HCL 50MG TABLET PO SCH ×2 (14:49→22:30)
[2019-06-24] MEDS: CLONIDINE 0.2MG TABLET PO SCH ×2 (14:49→22:30)
[2019-06-24] MEDS: LACTULOSE 20G/30ML UDC PO SCH (21:22)
[2019-06-24] MEDS: ONDANSETRON HCL 4MG/2ML INJ IV PRN (21:24)
[2019-06-25] VITALS (8 sets, daily range): BP systolic 102–138; BP diastolic 58–92
[2019-06-25] MEDS: HALOPERIDOL LACTATE 5MG/ML VIAL IM PRN (01:08)
[2019-06-25] MEDS: IPRATROPIUM/ALBUTEROL 0.5-3(2.5)MG/3ML NEB HHN SCH ×4 (02:27→20:35)
[2019-06-25] MEDS: HYDRALAZINE HCL 50MG TABLET PO SCH ×3 (05:56→22:43)
[2019-06-25] MEDS: CLONIDINE 0.2MG TABLET PO SCH ×3 (05:56→22:42)
[2019-06-25] MEDS: CARVEDILOL 12.5MG TABLET PO SCH ×2 (09:42→20:43)
[2019-06-25] MEDS: DEXAMETHASONE 4MG/ML 1ML VIAL IV SCH (09:42)
[2019-06-25] MEDS: NIFEDIPINE XL 60MG TAB PO SCH ×2 (09:42→20:42)
[2019-06-25] MEDS: MULTIVITAMINS,THER W-MINERALS TABLET PO SCH (09:42)
[2019-06-25] MEDS: PANTOPRAZOLE SODIUM 40 MG/VIAL IV SCH (09:42)
[2019-06-25] MEDS: LOSARTAN POTASSIUM 50 MG TABLET PO SCH ×2 (09:43→20:43)
[2019-06-25] MEDS: LACTOBACILLUS GG CAPSULE PO SCH (09:45)
[2019-06-25] MEDS: TRIAMTERENE/HYDROCHLOROTHIAZID 75/50MG TABLET PO SCH (09:46)
[2019-06-25] MEDS ORDERED: BISACODYL 10MG SUPP PR NR (10:00)
[2019-06-25 10:02] LABS: CHLORIDE 101 mEq/L (98-107)
[2019-06-25 10:08] LABS: BASOPHILS % 0.6 % (0.0-2.0); EOSINOPHILS % 1.7 % (0.0-5.0); HEMATOCRIT. 38.9 % (42.0-52.0); HEMOGLOBIN. 12.9 g/dL (14.0-18.0); LYMPHOCYTES % 21.5 % (20.0-50.0); MEAN CORPUSCULAR HEMOGLOBIN 29.7 pg (28.0-32.0); MEAN CORPUSCULAR VOLUME 89.2 fL (80.0-94.0); MEAN PLATELET VOLUME 8.8 fl (7.4-10.4); MONOCYTES % 6.8 % (2.0-8.0); NEUTROPHILS % 69.4 % (40.0-76.0); PLATELET 260 x1000/uL (130-400); RED BLOOD CELL COUNT 4.36 mill/uL (4.7-6.1); RED CELL DISTRIBUTION WIDTH 13.6 % (11.6-14.6)
[2019-06-25] MEDS: MORPHINE SULFATE 2 MG/ML CPJ (NOT FOR IM USE) IV PRN ×2 (12:33→20:41)
[2019-06-25] MEDS: LACTULOSE 20G/30ML UDC PO SCH (20:43)
[2019-06-26] VITALS (10 sets, daily range): BP systolic 91–162; BP diastolic 62–74
[2019-06-26] MEDS: IPRATROPIUM/ALBUTEROL 0.5-3(2.5)MG/3ML NEB HHN SCH ×4 (00:23→21:31)
[2019-06-26] MEDS: CLONIDINE 0.2MG TABLET PO SCH ×3 (05:31→21:09)
[2019-06-26] MEDS: HYDRALAZINE HCL 50MG TABLET PO SCH ×3 (05:31→21:09)
[2019-06-26] MEDS: DEXAMETHASONE 4MG/ML 1ML VIAL IV SCH (09:12)
[2019-06-26] MEDS: ACETAMINOPHEN 325MG TABLET PO PRN ×3 (09:12→20:07)
[2019-06-26] MEDS: PANTOPRAZOLE SODIUM 40 MG/VIAL IV SCH (09:12)
[2019-06-26] MEDS: LACTOBACILLUS GG CAPSULE PO SCH (09:13)
[2019-06-26] MEDS: TRIAMTERENE/HYDROCHLOROTHIAZID 75/50MG TABLET PO SCH (09:13)
[2019-06-26] MEDS: MULTIVITAMINS,THER W-MINERALS TABLET PO SCH (09:13)
[2019-06-26] MEDS: NIFEDIPINE XL 60MG TAB PO SCH ×2 (09:14→20:08)
[2019-06-26] MEDS: CARVEDILOL 12.5MG TABLET PO SCH ×2 (09:14→20:08)
[2019-06-26] MEDS: LOSARTAN POTASSIUM 50 MG TABLET PO SCH ×2 (09:14→20:08)
[2019-06-26] MEDS ORDERED: POTASSIUM CHLORIDE 20MEQ TABLET SR PO SCH (09:30)
[2019-06-26] MEDS: LACTULOSE 20G/30ML UDC PO SCH (20:05)
[2019-06-26] MEDS: HALOPERIDOL LACTATE 5MG/ML VIAL IM PRN (22:14)
[2019-06-26] MEDS: ONDANSETRON HCL 4MG/2ML INJ IV PRN (22:41)
[2019-06-27] VITALS (9 sets, daily range): BP systolic 99–151; BP diastolic 54–81
[2019-06-27] MEDS: IPRATROPIUM/ALBUTEROL 0.5-3(2.5)MG/3ML NEB HHN SCH ×4 (01:02→20:37)
[2019-06-27] MEDS: CLONIDINE 0.2MG TABLET PO SCH ×3 (05:39→21:59)
[2019-06-27] MEDS: HYDRALAZINE HCL 50MG TABLET PO SCH ×3 (05:40→21:58)
[2019-06-27] MEDS: PANTOPRAZOLE SODIUM 40 MG/VIAL IV SCH (09:56)
[2019-06-27] MEDS: DEXAMETHASONE 4MG/ML 1ML VIAL IV SCH (09:56)
[2019-06-27] MEDS: LOSARTAN POTASSIUM 50 MG TABLET PO SCH ×2 (10:02→21:59)
[2019-06-27] MEDS: NIFEDIPINE XL 60MG TAB PO SCH ×2 (10:02→21:58)
[2019-06-27] MEDS: CARVEDILOL 12.5MG TABLET PO SCH ×2 (10:02→21:59)
[2019-06-27] MEDS: TRIAMTERENE/HYDROCHLOROTHIAZID 75/50MG TABLET PO SCH (10:02)
[2019-06-27] MEDS: ACETAMINOPHEN 325MG TABLET PO PRN ×2 (10:03→16:09)
[2019-06-27] MEDS: MULTIVITAMINS,THER W-MINERALS TABLET PO SCH (10:03)
[2019-06-27] MEDS: LACTOBACILLUS GG CAPSULE PO SCH (10:03)
[2019-06-27] MEDS: IPRATROPIUM/ALBUTEROL 0.5-3(2.5)MG/3ML NEB HHN PRN (12:09)
[2019-06-27] MEDS: LACTULOSE 20G/30ML UDC PO SCH (21:00)
[2019-06-28] VITALS (10 sets, daily range): BP systolic 98–124; BP diastolic 61–75
[2019-06-28] MEDS: IPRATROPIUM/ALBUTEROL 0.5-3(2.5)MG/3ML NEB HHN SCH ×4 (00:47→20:44)
[2019-06-28] MEDS: HYDRALAZINE HCL 50MG TABLET PO SCH ×3 (05:37→22:00)
[2019-06-28] MEDS: CLONIDINE 0.2MG TABLET PO SCH ×3 (05:37→22:00)
[2019-06-28] MEDS: TRIAMTERENE/HYDROCHLOROTHIAZID 75/50MG TABLET PO SCH ×2 (09:00→09:28)
[2019-06-28] MEDS: CARVEDILOL 12.5MG TABLET PO SCH ×2 (09:00→20:10)
[2019-06-28] MEDS: NIFEDIPINE XL 60MG TAB PO SCH ×2 (09:00→20:11)
[2019-06-28] MEDS: MULTIVITAMINS,THER W-MINERALS TABLET PO SCH (09:14)
[2019-06-28] MEDS: PANTOPRAZOLE SODIUM 40 MG/VIAL IV SCH (09:14)
[2019-06-28] MEDS: DEXAMETHASONE 4MG/ML 1ML VIAL IV SCH (09:14)
[2019-06-28] MEDS: LOSARTAN POTASSIUM 50 MG TABLET PO SCH ×2 (09:14→20:11)
[2019-06-28] MEDS: LACTOBACILLUS GG CAPSULE PO SCH (09:14)
[2019-06-28] MEDS ORDERED: POTASSIUM CHLORIDE 20MEQ TABLET SR PO NR (17:00)
[2019-06-28] MEDS: LACTULOSE 20G/30ML UDC PO SCH (20:09)
[2019-06-28] MEDS: ACETAMINOPHEN 325MG TABLET PO PRN (20:13)
[2019-06-28] MEDS: HALOPERIDOL LACTATE 5MG/ML VIAL IM PRN (22:01)
[2019-06-29] VITALS (11 sets, daily range): BP systolic 110–151; BP diastolic 39–97
[2019-06-29] MEDS: IPRATROPIUM/ALBUTEROL 0.5-3(2.5)MG/3ML NEB HHN SCH ×5 (02:50→20:50)
[2019-06-29] MEDS: ACETAMINOPHEN 325MG TABLET PO PRN ×2 (03:32→21:24)
[2019-06-29] MEDS: HALOPERIDOL LACTATE 5MG/ML VIAL IM PRN ×2 (03:32→10:25)
[2019-06-29] MEDS: HYDRALAZINE HCL 50MG TABLET PO SCH ×3 (06:00→22:38)
[2019-06-29] MEDS: CLONIDINE 0.2MG TABLET PO SCH ×3 (06:00→22:38)
[2019-06-29 08:13] LABS: CHLORIDE 101 mEq/L (98-107)
[2019-06-29] MEDS: CARVEDILOL 12.5MG TABLET PO SCH ×2 (09:00→21:25)
[2019-06-29] MEDS: NIFEDIPINE XL 60MG TAB PO SCH ×2 (09:00→21:25)
[2019-06-29] MEDS: TRIAMTERENE/HYDROCHLOROTHIAZID 75/50MG TABLET PO SCH (09:11)
[2019-06-29] MEDS: MULTIVITAMINS,THER W-MINERALS TABLET PO SCH (09:11)
[2019-06-29] MEDS: PANTOPRAZOLE SODIUM 40 MG/VIAL IV SCH (09:11)
[2019-06-29] MEDS: DEXAMETHASONE 4MG/ML 1ML VIAL IV SCH (09:11)
[2019-06-29] MEDS: LOSARTAN POTASSIUM 50 MG TABLET PO SCH ×2 (09:11→21:25)
[2019-06-29] MEDS: LACTOBACILLUS GG CAPSULE PO SCH (13:54)
[2019-06-29] MEDS: LACTULOSE 20G/30ML UDC PO SCH (21:24)
[2019-06-30] VITALS: BP 124/84
[2019-06-30 02:00] VITALS: BP 118/78
[2019-06-30] MEDS: IPRATROPIUM/ALBUTEROL 0.5-3(2.5)MG/3ML NEB HHN SCH ×4 (02:00→20:59)
[2019-06-30 04:00] VITALS: BP 110/56
[2019-06-30] MEDS: CLONIDINE 0.2MG TABLET PO SCH ×3 (05:59→22:00)
[2019-06-30] MEDS: HYDRALAZINE HCL 50MG TABLET PO SCH ×3 (05:59→22:00)
[2019-06-30 08:00] VITALS: BP 141/65
[2019-06-30] MEDS: PANTOPRAZOLE SODIUM 40 MG/VIAL IV SCH (08:53)
[2019-06-30] MEDS: TRIAMTERENE/HYDROCHLOROTHIAZID 75/50MG TABLET PO SCH (08:53)
[2019-06-30] MEDS: LACTOBACILLUS GG CAPSULE PO SCH (08:53)
[2019-06-30] MEDS: LOSARTAN POTASSIUM 50 MG TABLET PO SCH ×2 (08:53→22:02)
[2019-06-30] MEDS: NIFEDIPINE XL 60MG TAB PO SCH ×2 (08:53→22:03)
[2019-06-30] MEDS: MULTIVITAMINS,THER W-MINERALS TABLET PO SCH (08:53)
[2019-06-30] MEDS: CARVEDILOL 12.5MG TABLET PO SCH ×2 (08:54→22:04)
[2019-06-30 16:00] VITALS: BP 128/84
[2019-06-30 20:00] VITALS: BP 116/77
[2019-06-30] MEDS: LACTULOSE 20G/30ML UDC PO SCH (22:02)
[2019-06-30] MEDS: ACETAMINOPHEN 325MG TABLET PO PRN (22:14)
[2019-07-01] VITALS (7 sets, daily range): BP systolic 102–121; BP diastolic 69–88
[2019-07-01] MEDS: IPRATROPIUM/ALBUTEROL 0.5-3(2.5)MG/3ML NEB HHN SCH ×3 (01:44→22:38)
[2019-07-01] MEDS: HYDRALAZINE HCL 50MG TABLET PO SCH ×3 (06:09→22:00)
[2019-07-01] MEDS: CLONIDINE 0.2MG TABLET PO SCH ×3 (06:09→22:00)
[2019-07-01] MEDS: PANTOPRAZOLE SODIUM 40 MG/VIAL IV SCH (09:33)
[2019-07-01] MEDS: MULTIVITAMINS,THER W-MINERALS TABLET PO SCH (09:34)
[2019-07-01] MEDS: LACTOBACILLUS GG CAPSULE PO SCH (09:34)
[2019-07-01] MEDS: CARVEDILOL 12.5MG TABLET PO SCH ×2 (09:34→20:35)
[2019-07-01] MEDS: LOSARTAN POTASSIUM 50 MG TABLET PO SCH ×2 (09:34→20:36)
[2019-07-01] MEDS: NIFEDIPINE XL 60MG TAB PO SCH ×2 (09:34→20:36)
[2019-07-01] MEDS: TRIAMTERENE/HYDROCHLOROTHIAZID 75/50MG TABLET PO SCH (09:34)
[2019-07-01] MEDS: RISPERIDONE 0.5MG TABLET PO SCH (17:25)
[2019-07-01] MEDS: LACTULOSE 20G/30ML UDC PO SCH (20:10)
[2019-07-01] MEDS: HALOPERIDOL LACTATE 5MG/ML VIAL IM PRN (20:38)
[2019-07-02] MEDS: IPRATROPIUM/ALBUTEROL 0.5-3(2.5)MG/3ML NEB HHN SCH ×5 (02:32→21:39)
[2019-07-02 04:00] VITALS: BP 130/94
[2019-07-02] MEDS: HYDRALAZINE HCL 50MG TABLET PO SCH ×3 (05:38→22:23)
[2019-07-02] MEDS: CLONIDINE 0.2MG TABLET PO SCH ×3 (05:38→22:23)
[2019-07-02 07:13] LABS: HEMATOCRIT 40.4 % (42.0-52.0); HEMOGLOBIN 13.2 g/dL (14.0-18.0); MEAN CORPUSCULAR HEMOGLOBIN 29.1 pg (28.0-32.0); PLATELET 234 x1000/uL (130-400); RED BLOOD CELL COUNT 4.53 mill/uL (4.7-6.1)
[2019-07-02 08:00] VITALS: BP 128/77
[2019-07-02 08:36] LABS: CHLORIDE 102 mEq/L (98-107)
[2019-07-02] MEDS: MULTIVITAMINS,THER W-MINERALS TABLET PO SCH (09:59)
[2019-07-02] MEDS: PANTOPRAZOLE SODIUM 40 MG/VIAL IV SCH (10:00)
[2019-07-02] MEDS: NIFEDIPINE XL 60MG TAB PO SCH ×2 (10:01→20:27)
[2019-07-02] MEDS: RISPERIDONE 0.5MG TABLET PO SCH (10:01)
[2019-07-02] MEDS: CARVEDILOL 12.5MG TABLET PO SCH ×2 (10:01→20:28)
[2019-07-02] MEDS: LACTOBACILLUS GG CAPSULE PO SCH (10:02)
[2019-07-02] MEDS: LOSARTAN POTASSIUM 50 MG TABLET PO SCH ×2 (10:02→20:27)
[2019-07-02] MEDS: TRIAMTERENE/HYDROCHLOROTHIAZID 75/50MG TABLET PO SCH (10:02)
[2019-07-02] MEDS ORDERED: POTASSIUM CHLORIDE 20MEQ TABLET SR PO NR (10:30)
[2019-07-02 12:00] VITALS: BP 100/60
[2019-07-02 16:00] VITALS: BP 106/70
[2019-07-02 20:00] VITALS: BP 110/65
[2019-07-02] MEDS: LACTULOSE 20G/30ML UDC PO SCH (20:11)
[2019-07-02] MEDS: ACETAMINOPHEN 325MG TABLET PO PRN (20:28)
[2019-07-02] MEDS: HALOPERIDOL LACTATE 5MG/ML VIAL IM PRN (22:21)
[2019-07-03] VITALS: BP 115/60
[2019-07-03] MEDS: IPRATROPIUM/ALBUTEROL 0.5-3(2.5)MG/3ML NEB HHN SCH ×4 (02:32→21:56)
[2019-07-03 04:00] VITALS: BP 120/77
[2019-07-03] MEDS: CLONIDINE 0.2MG TABLET PO SCH ×3 (06:34→22:00)
[2019-07-03] MEDS: HYDRALAZINE HCL 50MG TABLET PO SCH ×3 (06:34→22:00)
[2019-07-03 08:22] VITALS: BP 86/65
[2019-07-03] MEDS ORDERED: SODIUM CHLORIDE 0.9% 500 ML IV SCH (08:30)
[2019-07-03] MEDS: NIFEDIPINE XL 60MG TAB PO SCH ×2 (09:00→21:00)
[2019-07-03] MEDS: LOSARTAN POTASSIUM 50 MG TABLET PO SCH ×2 (09:00→21:00)
[2019-07-03] MEDS: TRIAMTERENE/HYDROCHLOROTHIAZID 75/50MG TABLET PO SCH (09:00)
[2019-07-03] MEDS: CARVEDILOL 12.5MG TABLET PO SCH ×2 (09:00→21:03)
[2019-07-03] MEDS: MULTIVITAMINS,THER W-MINERALS TABLET PO SCH (09:33)
[2019-07-03] MEDS: LACTOBACILLUS GG CAPSULE PO SCH (09:33)
[2019-07-03] MEDS: PANTOPRAZOLE SODIUM 40 MG/VIAL IV SCH (09:33)
[2019-07-03 11:52] VITALS: BP 94/66
[2019-07-03] MEDS ORDERED: HALOPERIDOL LACTATE 5MG/ML VIAL IM PRN (12:45)
[2019-07-03] MEDS: RISPERIDONE 0.5MG TABLET PO SCH (14:57)
[2019-07-03 16:10] VITALS: BP 106/74
[2019-07-03 20:00] VITALS: BP 104/61
[2019-07-03] MEDS: LACTULOSE 20G/30ML UDC PO SCH (21:00)
[2019-07-03] MEDS: ACETAMINOPHEN 325MG TABLET PO PRN (21:03)
[2019-07-04] VITALS: BP 117/75
[2019-07-04] MEDS: IPRATROPIUM/ALBUTEROL 0.5-3(2.5)MG/3ML NEB HHN SCH ×4 (02:50→20:26)
[2019-07-04 04:00] VITALS: BP 101/65
[2019-07-04] MEDS: CLONIDINE 0.2MG TABLET PO SCH ×3 (05:28→22:00)
[2019-07-04] MEDS: ACETAMINOPHEN 325MG TABLET PO PRN ×4 (05:28→20:46)
[2019-07-04] MEDS: HYDRALAZINE HCL 50MG TABLET PO SCH ×3 (06:00→22:00)
[2019-07-04 07:58] VITALS: BP 102/80
[2019-07-04] MEDS: TRIAMTERENE/HYDROCHLOROTHIAZID 75/50MG TABLET PO SCH (09:00)
[2019-07-04] MEDS: LOSARTAN POTASSIUM 50 MG TABLET PO SCH ×2 (09:00→20:46)
[2019-07-04] MEDS: NIFEDIPINE XL 60MG TAB PO SCH ×2 (09:00→20:57)
[2019-07-04] MEDS: CARVEDILOL 12.5MG TABLET PO SCH ×2 (09:00→20:46)
[2019-07-04] MEDS: LACTOBACILLUS GG CAPSULE PO SCH (11:00)
[2019-07-04] MEDS: MULTIVITAMINS,THER W-MINERALS TABLET PO SCH (11:00)
[2019-07-04] MEDS: PANTOPRAZOLE SODIUM 40 MG/VIAL IV SCH (11:00)
[2019-07-04] MEDS: RISPERIDONE 0.5MG TABLET PO SCH (11:00)
[2019-07-04 12:00] VITALS: BP 106/70
[2019-07-04 16:00] VITALS: BP 122/66
[2019-07-04 20:00] VITALS: BP 111/76
[2019-07-04] MEDS: LACTULOSE 20G/30ML UDC PO SCH (21:00)
[2019-07-05] VITALS: BP 91/68
[2019-07-05] MEDS: IPRATROPIUM/ALBUTEROL 0.5-3(2.5)MG/3ML NEB HHN SCH ×4 (01:20→21:32)
[2019-07-05 04:00] VITALS: BP 121/71
[2019-07-05] MEDS: HYDRALAZINE HCL 50MG TABLET PO SCH ×3 (06:00→21:15)
[2019-07-05] MEDS: CLONIDINE 0.2MG TABLET PO SCH ×3 (06:00→21:15)
[2019-07-05 07:08] LABS: BASOPHILS % 0.7 % (0.0-2.0); EOSINOPHILS % 2.4 % (0.0-5.0); HEMOGLOBIN. 12.2 g/dL (14.0-18.0); LYMPHOCYTES % 13.2 % (20.0-50.0); MEAN CORPUSCULAR HEMOGLOBIN 28.9 pg (28.0-32.0); MEAN CORPUSCULAR VOLUME 89.7 fL (80.0-94.0); MEAN PLATELET VOLUME 8.3 fl (7.4-10.4); NEUTROPHILS % 75.7 % (40.0-76.0); PLATELET 251 x1000/uL (130-400); RED BLOOD CELL COUNT 4.23 mill/uL (4.7-6.1); RED CELL DISTRIBUTION WIDTH 14.1 % (11.6-14.6)
[2019-07-05 08:00] VITALS: BP 147/88
[2019-07-05 08:02] LABS: CHLORIDE 102 mEq/L (98-107)
[2019-07-05] MEDS: LOSARTAN POTASSIUM 50 MG TABLET PO SCH ×2 (09:33→21:00)
[2019-07-05] MEDS: NIFEDIPINE XL 60MG TAB PO SCH (09:33)
[2019-07-05] MEDS: RISPERIDONE 0.25MG TABLET PO SCH (09:33)
[2019-07-05] MEDS: PANTOPRAZOLE SODIUM 40 MG/VIAL IV SCH (09:33)
[2019-07-05] MEDS: CARVEDILOL 12.5MG TABLET PO SCH ×2 (09:33→21:00)
[2019-07-05] MEDS: LACTOBACILLUS GG CAPSULE PO SCH (09:34)
[2019-07-05] MEDS: TRIAMTERENE/HYDROCHLOROTHIAZID 75/50MG TABLET PO SCH (09:34)
[2019-07-05] MEDS: MULTIVITAMINS,THER W-MINERALS TABLET PO SCH (09:40)
[2019-07-05 12:00] VITALS: BP_SYST 115; BP_SYST 147; BP_DIAS 82; BP_DIAS 88
[2019-07-05] MEDS: DILTIAZEM HCL 60MG TABLET PO SCH ×3 (13:04→21:15)
[2019-07-05] MEDS: ACETAMINOPHEN 325MG TABLET PO PRN ×2 (15:07→22:53)
[2019-07-05 16:00] VITALS: BP 136/72
[2019-07-05] MEDS ORDERED: APIXABAN 2.5 MG TABLET PO SCH (17:00)
[2019-07-05] MEDS: LACTULOSE 20G/30ML UDC PO SCH (21:00)
[2019-07-06] VITALS: BP 116/80
[2019-07-06 00:12] VITALS: BP 69/34
[2019-07-06] MEDS: IPRATROPIUM/ALBUTEROL 0.5-3(2.5)MG/3ML NEB HHN SCH ×4 (03:28→20:30)
[2019-07-06] MEDS: CLONIDINE 0.2MG TABLET PO SCH ×3 (06:00→22:00)
[2019-07-06] MEDS: DILTIAZEM HCL 60MG TABLET PO SCH ×3 (06:00→21:28)
[2019-07-06] MEDS: HYDRALAZINE HCL 50MG TABLET PO SCH ×3 (06:00→21:27)
[2019-07-06 08:00] VITALS: BP 128/66
[2019-07-06] MEDS: TRIAMTERENE/HYDROCHLOROTHIAZID 75/50MG TABLET PO SCH (10:30)
[2019-07-06] MEDS: PANTOPRAZOLE SODIUM 40 MG/VIAL IV SCH (10:30)
[2019-07-06] MEDS: LOSARTAN POTASSIUM 50 MG TABLET PO SCH ×2 (10:31→21:27)
[2019-07-06] MEDS: MULTIVITAMINS,THER W-MINERALS TABLET PO SCH (10:31)
[2019-07-06] MEDS: LACTOBACILLUS GG CAPSULE PO SCH (10:31)
[2019-07-06] MEDS: RISPERIDONE 0.25MG TABLET PO SCH (10:31)
[2019-07-06] MEDS: CARVEDILOL 12.5MG TABLET PO SCH ×2 (10:31→21:28)
[2019-07-06 12:00] VITALS: BP 111/83
[2019-07-06 16:00] VITALS: BP 110/78
[2019-07-06 19:30] VITALS: BP 116/72
[2019-07-06] MEDS: AMIODARONE HCL 200 MG TABLET PO SCH (21:26)
[2019-07-06] MEDS: LACTULOSE 20G/30ML UDC PO SCH (21:29)
[2019-07-06] MEDS: ACETAMINOPHEN 325MG TABLET PO PRN (21:43)
[2019-07-07] VITALS: BP 130/58
[2019-07-07] MEDS: IPRATROPIUM/ALBUTEROL 0.5-3(2.5)MG/3ML NEB HHN SCH ×4 (00:26→21:43)
[2019-07-07] MEDS ORDERED: SODIUM CHLORIDE 0.9% 1000ML BAG (SEPSIS BOLUS) IV ONE (00:45)
[2019-07-07] MEDS ORDERED: SODIUM CHLORIDE 0.9% 500 ML IV ONE (01:15)
[2019-07-07 04:09] VITALS: BP 96/65
[2019-07-07] MEDS: CLONIDINE 0.2MG TABLET PO SCH (05:42)
[2019-07-07] MEDS: HYDRALAZINE HCL 50MG TABLET PO SCH (05:45)
[2019-07-07] MEDS: DILTIAZEM HCL 60MG TABLET PO SCH (05:45)
[2019-07-07 08:00] VITALS: BP 99/65
[2019-07-07 08:19] LABS: BASOPHILS % 0.5 % (0.0-2.0); EOSINOPHILS % 0.4 % (0.0-5.0); HEMATOCRIT. 35.2 % (42.0-52.0); HEMOGLOBIN. 11.5 g/dL (14.0-18.0); MEAN CORPUSCULAR HEMOGLOBIN 28.9 pg (28.0-32.0); MEAN CORPUSCULAR VOLUME 88.5 fL (80.0-94.0); MEAN PLATELET VOLUME 7.8 fl (7.4-10.4); MONOCYTES % 6.9 % (2.0-8.0); NEUTROPHILS % 79.2 % (40.0-76.0); PLATELET 375 x1000/uL (130-400); RED BLOOD CELL COUNT 3.98 mill/uL (4.7-6.1); RED CELL DISTRIBUTION WIDTH 13.8 % (11.6-14.6)
[2019-07-07] MEDS: TRIAMTERENE/HYDROCHLOROTHIAZID 75/50MG TABLET PO SCH (09:00)
[2019-07-07] MEDS: LOSARTAN POTASSIUM 50 MG TABLET PO SCH (09:00)
[2019-07-07] MEDS: CARVEDILOL 12.5MG TABLET PO SCH (09:00)
[2019-07-07] MEDS: MULTIVITAMINS,THER W-MINERALS TABLET PO SCH (09:33)
[2019-07-07] MEDS: LACTOBACILLUS GG CAPSULE PO SCH (09:33)
[2019-07-07] MEDS: RISPERIDONE 0.25MG TABLET PO SCH (09:33)
[2019-07-07] MEDS: PANTOPRAZOLE SODIUM 40 MG/VIAL IV SCH (09:34)
[2019-07-07] MEDS: SODIUM CHLORIDE 0.45% 1,000 ML IV SCH (10:45)
[2019-07-07 12:00] VITALS: BP 95/56
[2019-07-07] MEDS: AMIODARONE HCL 200 MG TABLET PO SCH ×2 (12:47→20:49)
[2019-07-07] MEDS: ACETAMINOPHEN 325MG TABLET PO PRN (12:47)
[2019-07-07 16:00] VITALS: BP 108/69
[2019-07-07 16:00] LABS: CREATINE KINASE 16 IU/L (39-308)
[2019-07-07 20:00] VITALS: BP 125/75
[2019-07-07] MEDS: CARVEDILOL 3.125 MG TABLET PO SCH (20:51)
[2019-07-07] MEDS: LACTULOSE 20G/30ML UDC PO SCH (20:52)
[2019-07-07] MEDS: DILTIAZEM HCL 30MG TABLET PO SCH (22:00)
[2019-07-07] MEDS ORDERED: DIPHENHYDRAMINE 25MG CAPSULE PO NR (22:36)
[2019-07-08] VITALS: BP 100/65
[2019-07-08] MEDS: SODIUM CHLORIDE 0.45% 1,000 ML IV SCH (00:05)
[2019-07-08] MEDS ORDERED: SODIUM CHLORIDE 0.9% 500 ML IV ONE (01:15)
[2019-07-08 04:00] VITALS: BP 113/80
[2019-07-08] MEDS: DILTIAZEM HCL 30MG TABLET PO SCH (05:26)
[2019-07-08 06:52] LABS: BASOPHILS % 0.5 % (0.0-2.0); HEMATOCRIT. 34.3 % (42.0-52.0); HEMOGLOBIN. 11.3 g/dL (14.0-18.0); LYMPHOCYTES % 16.3 % (20.0-50.0); MEAN CORPUSCULAR HEMOGLOBIN 29.1 pg (28.0-32.0); MEAN CORPUSCULAR VOLUME 88.5 fL (80.0-94.0); MEAN PLATELET VOLUME 8.1 fl (7.4-10.4); MONOCYTES % 7.7 % (2.0-8.0); NEUTROPHILS % 73.5 % (40.0-76.0); PLATELET 343 x1000/uL (130-400); RED BLOOD CELL COUNT 3.88 mill/uL (4.7-6.1); RED CELL DISTRIBUTION WIDTH 13.9 % (11.6-14.6)
[2019-07-08 08:05] VITALS: BP 124/66
[2019-07-08] MEDS: PANTOPRAZOLE SODIUM 40 MG/VIAL IV SCH (09:00)
[2019-07-08] MEDS: IPRATROPIUM/ALBUTEROL 0.5-3(2.5)MG/3ML NEB HHN SCH ×2 (09:30→15:11)
[2019-07-08] MEDS: LACTOBACILLUS GG CAPSULE PO SCH (10:29)
[2019-07-08] MEDS: RISPERIDONE 0.25MG TABLET PO SCH (10:29)
[2019-07-08] MEDS: CARVEDILOL 3.125 MG TABLET PO SCH (10:29)
[2019-07-08] MEDS: AMIODARONE HCL 200 MG TABLET PO SCH (10:29)
[2019-07-08] MEDS: MULTIVITAMINS,THER W-MINERALS TABLET PO SCH (10:29)
[2019-07-08 12:34] VITALS: BP 127/88
[2019-07-08 17:06] VITALS: BP 127/86
[2019-07-08] MEDS: ACETAMINOPHEN 325MG TABLET PO PRN (17:11)
== END 2019-07-08 18:25 | DRG 21 ==
LOC: ER 06:03 → MICUSO 09:19 → EDBEDREQTM 09:22 → EDBEDREQ 09:22 → ENRESERV 10:39 → MICUNO 06-17 08:13 → 5EST 06-19 17:30 → 8WST 06-30 11:05
PROVIDERS: ADMIT Family Medicine Adult Medicine; ATTEND Family Medicine Adult Medicine
PROC: 30233K1 Transfusion of Nonautologous Frozen Plasma into Peripheral Vein, Percutaneous Approach (ICD-10-PCS; 2019-06-09)
PROC: 00C70ZZ Extirpation of Matter from Cerebral Hemisphere, Open Approach (ICD-10-PCS; principal; 2019-06-10)
PROC: 00H632Z Insertion of Monitoring Device into Cerebral Ventricle, Percutaneous Approach (ICD-10-PCS; 2019-06-10)
PROC: 0NU007Z Supplement Skull with Autologous Tissue Substitute, Open Approach (ICD-10-PCS; 2019-06-10)
PROC: 4A103BD Monitoring of Intracranial Pressure, Percutaneous Approach (ICD-10-PCS; 2019-06-10)
PROC: 5A1955Z Respiratory Ventilation, Greater than 96 Consecutive Hours (ICD-10-PCS; 2019-06-10)
PROC: 0BH17EZ Insertion of Endotracheal Airway into Trachea, Via Natural or Artificial Opening (ICD-10-PCS; 2019-06-10)
PROC: 05H433Z Insertion of Infusion Device into Left Innominate Vein, Percutaneous Approach (ICD-10-PCS; 2019-06-14)
PROC: B54NZZA Ultrasonography of Left Upper Extremity Veins, Guidance (ICD-10-PCS; 2019-06-14)
DX: I61.5 Nontraumatic intracerebral hemorrhage, intraventricular (principal); J96.00 Acute respiratory failure, unspecified whether with hypoxia or hypercapnia; N17.0 Acute kidney failure with tubular necrosis; J69.0 Pneumonitis due to inhalation of food and vomit; G93.40 Encephalopathy, unspecified; E83.39 Other disorders of phosphorus metabolism; I95.9 Hypotension, unspecified; I16.1 Hypertensive emergency; E87.6 Hypokalemia; I11.0 Hypertensive heart disease with heart failure; G81.94 Hemiplegia, unspecified affecting left nondominant side; E83.51 Hypocalcemia; E87.0 Hyperosmolality and hypernatremia; F10.10 Alcohol abuse, uncomplicated; F14.10 Cocaine abuse, uncomplicated; F17.210 Nicotine dependence, cigarettes, uncomplicated; F29 Unspecified psychosis not due to a substance or known physiological condition; I48.91 Unspecified atrial fibrillation; I50.42 Chronic combined systolic (congestive) and diastolic (congestive) heart failure; I71.4 Abdominal aortic aneurysm, without rupture; I99.8 Other disorder of circulatory system; J98.11 Atelectasis; M19.90 Unspecified osteoarthritis, unspecified site; R29.6 Repeated falls; R73.9 Hyperglycemia, unspecified; T38.0X5A Adverse effect of glucocorticoids and synthetic analogues, initial encounter; S81.812A Laceration without foreign body, left lower leg, initial encounter; X58.XXXA Exposure to other specified factors, initial encounter; Y93.89 Activity, other specified; Y92.89 Other specified places as the place of occurrence of the external cause; Y99.8 Other external cause status; Z78.1 Physical restraint status; Z79.01 Long term (current) use of anticoagulants; Z79.899 Other long term (current) drug therapy; Z82.49 Family history of ischemic heart disease and other diseases of the circulatory system; Z86.73 Personal history of transient ischemic attack (TIA), and cerebral infarction without residual deficits
CPT/HCPCS: 36415; 36600; 70496; 70498; 71045; 73030; 76770; 76937; 80048; 80061; 80076; 80305; 80320; 81003; 82375; 82550; 82805; 82962; 83036; 83605; 83735; 84100; 84134; 84145; 84443; 84478; 85027; 85651; 86850; 86900; 86927; 88304; 92610; 93005; 93306; 93970; 94002; 94003; 94640; 97110; 97162; 97167; 97530; 97535; 99291; A6261; C1713; C1725; C9113; J0360; J0610; J0690; J1100; J1165; J1170; J1200; J1630; J1940; J1953; J2250; J2270; J2405; J2543; J2704; J2710; J2765; J3010; J3480; J3490; J7040; J7050; J7060; J7120; J7620; P9017; P9034; Q0163; Q9967; A4315; G0480

== ENCOUNTER 2019-12-15 10:11 | Emergency (ER) | payer MEDICAID ==
[~2019-12-15] VITALS: Ht 180.3 cm; Wt 80.0 kg
[~2019-12-15 10:11] MED LIST: CARV12.545 MT; LISI40TA4 PO; RIVA20TA PO
[2019-12-15] MEDS ORDERED: LORAZEPAM 2MG/ML CPJ IV ONE (10:45)
[2019-12-15 11:18] LABS: BASOPHILS % 0.3 % (0.0-2.0); EOSINOPHILS % 1.1 % (0.0-5.0); HEMOGLOBIN. 13.6 g/dL (14.0-18.0); MEAN CORPUSCULAR HEMOGLOBIN 29.1 pg (28.0-32.0); MEAN CORPUSCULAR VOLUME 87.4 fL (80.0-94.0); MEAN PLATELET VOLUME 8.7 fl (7.4-10.4); MONOCYTES % 7.8 % (2.0-8.0); NEUTROPHILS % 77.8 % (40.0-76.0); PLATELET 239 x1000/uL (130-400); RED BLOOD CELL COUNT 4.69 mill/uL (4.7-6.1); RED CELL DISTRIBUTION WIDTH 15.8 % (11.6-14.6)
[2019-12-15 11:19] LABS: CHLORIDE 108 mEq/L (98-107)
[2019-12-15 11:24] LABS: ETHANOL BLOOD < 10 mg/dL
[2019-12-15 11:36] LABS: CLARITY URINE CLEAR (CLEAR); COLOR URINE YELLOW (YELLOW); KETONES URINE NEGATIVE (NEGATIVE); LEUKOCYTE ESTERASE URINE TRACE (NEGATIVE); NITRITE URINE NEGATIVE (NEGATIVE); OCCULT BLOOD URINE NEGATIVE (NEGATIVE); PROTEIN URINE 2+ (NEGATIVE)
[2019-12-15 11:45] LABS: *BARBITURATES SCREEN URINE NEGATIVE (NEGATIVE)
[2019-12-15 11:46] LABS: *AMPHETAMINES SCREEN URINE NEGATIVE (NEGATIVE); CANNABINOID URINE SCREEN NEGATIVE (NEGATIVE); METHADONE URINE SCREEN NEGATIVE (NEGATIVE); OPIATES URINE SCREEN NEGATIVE (NEGATIVE); PHENCYCLIDINE URINE SCREEN NEGATIVE (NEGATIVE)
[2019-12-15 11:55] LABS: *COCAINE SCREEN URINE NEGATIVE (NEGATIVE)
[2019-12-15 12:11] LABS: *BENZODIAZEPINES SCREEN URINE NEGATIVE (NEGATIVE)
[2019-12-15] MEDS ORDERED: AMLODIPINE 5MG TABLET PO ONE (12:45)
[2019-12-15] MEDS ORDERED: LISINOPRIL 10MG TABLET PO ONE (12:45)
[2019-12-15] MEDS ORDERED: POTASSIUM CHLORIDE 20MEQ TABLET SR PO ONE (14:00)
[2019-12-15] MEDS ORDERED: KCL 20MEQ/100ML PREMIX 100 ML IV ONE (14:00)
[2019-12-15] MEDS ORDERED: LEVETIRACETAM 500MG TABLET PO ONE (14:00)
[2019-12-15 18:27] VITALS: BP 148/87
== END 2019-12-15 18:32 | disposition home or self-care (01) ==
LOC: ER 10:11
DX: G40.909 Epilepsy, unspecified, not intractable, without status epilepticus (principal); I11.0 Hypertensive heart disease with heart failure; I50.9 Heart failure, unspecified; I67.2 Cerebral atherosclerosis; Z79.899 Other long term (current) drug therapy
CPT/HCPCS: 36415; 70450; 70551; 80053; 80305; 80320; 81003; 82140; 85025; 93005; 96365; 96375; 99285; J2060; J3480; G0480

== ENCOUNTER 2020-03-17 11:02 | Inpatient (IN) | payer MEDICAID ==
[~2020-03-17] VITALS: Ht 180.3 cm; Wt 84.4 kg
[2020-03-17 11:41] LABS: HEMATOCRIT. 37.3 % (42.0-52.0); HEMOGLOBIN. 12.5 g/dL (14.0-18.0); MEAN CORPUSCULAR HEMOGLOBIN 29.7 pg (28.0-32.0); MEAN CORPUSCULAR VOLUME 88.9 fL (80.0-94.0); MEAN PLATELET VOLUME 8.1 fl (7.4-10.4); PLATELET 322 x1000/uL (130-400); RED CELL DISTRIBUTION WIDTH 17.5 % (11.6-14.6)
[2020-03-17 11:49] LABS: CHLORIDE 107 mEq/L (98-107)
[2020-03-17 11:53] LABS: INR 1.1; PROTHROMBIN TIME 11.4 sec (9.6-11.0)
[2020-03-17 12:40] LABS: PLATELET ESTIMATE NORMAL
[2020-03-17 13:17] LABS: CLARITY URINE CLOUDY (CLEAR); COLOR URINE DARK YELLOW (YELLOW); KETONES URINE NEGATIVE (NEGATIVE); LEUKOCYTE ESTERASE URINE 2+ (NEGATIVE); NITRITE URINE NEGATIVE (NEGATIVE); OCCULT BLOOD URINE NEGATIVE (NEGATIVE); PH URINE 6.5 (4.5-8.0); PROTEIN URINE 1+ (NEGATIVE); SPECIFIC GRAVITY URINE 1.017 (1.005-1.030)
[2020-03-17] MEDS ORDERED: CEFTRIAXONE 1 G PREMIX 50 ML IV ONE (13:45)
[2020-03-17] MEDS ORDERED: POTASSIUM CHLORIDE 20MEQ/PACKET PO ONE (14:00)
[2020-03-17] MEDS ORDERED: CEFTRIAXONE 1 G PREMIX 50 ML IV SCH (19:00)
[2020-03-17] MEDS ORDERED: ACETAMINOPHEN 650MG/20.3ML UDC GT PRN ×2 (19:00)
[2020-03-17 19:58] VITALS: BP 174/104
[2020-03-17 22:00] VITALS: BP 203/117
[2020-03-17] MEDS: CLONIDINE 0.1MG TABLET PO PRN (22:51)
[2020-03-17] MEDS ORDERED: MAGNESIUM 1 G PREMIX 100 ML IV SCH (23:00)
[2020-03-18] VITALS (12 sets, daily range): BP systolic 125–179; BP diastolic 67–107
[2020-03-18] MEDS ORDERED: HYDRALAZINE 20MG/ML VIAL IV PRN (00:30)
[2020-03-18] MEDS ORDERED: TEMAZEPAM 15MG CAPSULE PO PRN (00:30)
[2020-03-18] MEDS: DEXT 5%/0.45% NACL KCL 40MEQ/L 1,000 ML IV SCH ×3 (00:47→22:29)
[2020-03-18] MEDS: DILTIAZEM HCL 30MG TABLET PO SCH ×3 (06:00→22:00)
[2020-03-18 06:21] LABS: BASOPHILS % 0.8 % (0.0-2.0); HEMATOCRIT. 36.1 % (42.0-52.0); LYMPHOCYTES % 26.1 % (20.0-50.0); MEAN CORPUSCULAR HEMOGLOBIN 29.4 pg (28.0-32.0); MEAN CORPUSCULAR VOLUME 88.4 fL (80.0-94.0); MEAN PLATELET VOLUME 8.5 fl (7.4-10.4); MONOCYTES % 7.7 % (2.0-8.0); NEUTROPHILS % 64.4 % (40.0-76.0); PLATELET 326 x1000/uL (130-400); RED BLOOD CELL COUNT 4.08 mill/uL (4.7-6.1)
[2020-03-18 06:31] LABS: CHLORIDE 107 mEq/L (98-107)
[2020-03-18 06:39] LABS: PHOSPHORUS 2.2 mg/dL (2.5-4.9)
[2020-03-18] MEDS: AMIODARONE HCL 200 MG TABLET PO SCH ×2 (08:59→21:18)
[2020-03-18] MEDS: CARVEDILOL 3.125 MG TABLET PO SCH ×2 (09:00→21:00)
[2020-03-18] MEDS: LISINOPRIL 40MG TABLET PO SCH (09:01)
[2020-03-18] MEDS ORDERED: POTASSIUM CHLORIDE 20MEQ/PACKET PO NR (11:00)
[2020-03-18] MEDS ORDERED: CARV3.1242 PO (11:18)
[2020-03-18] MEDS ORDERED: AMI2 PO (11:26)
[2020-03-18] MEDS ORDERED: DILT30TA3 PO (11:27)
[2020-03-18] MEDS ORDERED: POTASSIUM CHLORIDE 20MEQ TABLET SR PO NR (14:30)
[2020-03-18] MEDS: CEFTRIAXONE 1,000 MG in DEXTROSE 5% WATER 50 ML IV SCH (15:37)
[2020-03-18] MEDS: HYDRALAZINE HCL 50MG TABLET PO SCH (22:35)
[2020-03-18] MEDS: CLONIDINE 0.1MG TABLET PO PRN (23:23)
[2020-03-19] VITALS (13 sets, daily range): BP systolic 133–178; BP diastolic 75–126
[2020-03-19] MEDS: DEXT 5%/0.45% NACL KCL 40MEQ/L 1,000 ML IV SCH ×3 (02:00→22:13)
[2020-03-19] MEDS: DILTIAZEM HCL 30MG TABLET PO SCH ×3 (06:00→22:00)
[2020-03-19] MEDS: HYDRALAZINE HCL 50MG TABLET PO SCH ×3 (06:30→22:17)
[2020-03-19] MEDS: LISINOPRIL 40MG TABLET PO SCH ×2 (09:00→18:04)
[2020-03-19] MEDS: CARVEDILOL 3.125 MG TABLET PO SCH ×2 (09:00→20:58)
[2020-03-19] MEDS ORDERED: IOHEXOL-350 100 ML BOTTLE ONE (09:54)
[2020-03-19] MEDS: AMIODARONE HCL 200 MG TABLET PO SCH ×2 (09:55→21:07)
[2020-03-19] MEDS: CEFTRIAXONE 1,000 MG in DEXTROSE 5% WATER 50 ML IV SCH (14:58)
[2020-03-19] MEDS: CLONIDINE 0.1MG TABLET PO PRN (18:04)
[2020-03-19] MEDS: TEMAZEPAM 15MG CAPSULE PO PRN (21:07)
[2020-03-20] VITALS (11 sets, daily range): BP systolic 148–173; BP diastolic 75–100
[2020-03-20] MEDS: DILTIAZEM HCL 30MG TABLET PO SCH ×3 (06:00→22:27)
[2020-03-20] MEDS: HYDRALAZINE HCL 50MG TABLET PO SCH ×3 (06:41→22:28)
[2020-03-20 08:14] LABS: BASOPHILS % 0.6 % (0.0-2.0); EOSINOPHILS % 2.7 % (0.0-5.0); HEMATOCRIT. 33.1 % (42.0-52.0); HEMOGLOBIN. 11.3 g/dL (14.0-18.0); LYMPHOCYTES % 22.4 % (20.0-50.0); MEAN CORPUSCULAR HEMOGLOBIN 30.2 pg (28.0-32.0); MEAN CORPUSCULAR VOLUME 88.3 fL (80.0-94.0); MEAN PLATELET VOLUME 8.2 fl (7.4-10.4); MONOCYTES % 10.2 % (2.0-8.0); NEUTROPHILS % 64.1 % (40.0-76.0); PLATELET 280 x1000/uL (130-400); RED BLOOD CELL COUNT 3.75 mill/uL (4.7-6.1); RED CELL DISTRIBUTION WIDTH 17.6 % (11.6-14.6)
[2020-03-20 08:58] LABS: CHLORIDE 108 mEq/L (98-107)
[2020-03-20] MEDS: CARVEDILOL 3.125 MG TABLET PO SCH ×2 (09:00→21:09)
[2020-03-20] MEDS: AMIODARONE HCL 200 MG TABLET PO SCH ×2 (09:32→20:58)
[2020-03-20] MEDS: LISINOPRIL 40MG TABLET PO SCH (09:33)
[2020-03-20] MEDS: DEXT 5%/0.45% NACL KCL 40MEQ/L 1,000 ML IV SCH ×2 (10:33→23:57)
[2020-03-20] MEDS: CEFTRIAXONE 1,000 MG in DEXTROSE 5% WATER 50 ML IV SCH (14:46)
[2020-03-20] MEDS: DIPHENHYDRAMINE 50MG/ML VIAL IV PRN (16:48)
[2020-03-20] MEDS: CLONIDINE 0.1MG TABLET PO PRN (18:48)
[2020-03-20] MEDS: TEMAZEPAM 15MG CAPSULE PO PRN (20:59)
[2020-03-21] VITALS (11 sets, daily range): BP systolic 131–170; BP diastolic 86–124
[2020-03-21] MEDS: DIPHENHYDRAMINE 50MG/ML VIAL IV PRN ×3 (05:28→22:36)
[2020-03-21] MEDS: DILTIAZEM HCL 30MG TABLET PO SCH ×3 (05:29→22:24)
[2020-03-21] MEDS: HYDRALAZINE HCL 50MG TABLET PO SCH ×3 (05:29→22:24)
[2020-03-21] MEDS: AMIODARONE HCL 200 MG TABLET PO SCH ×2 (09:00→21:45)
[2020-03-21] MEDS: CARVEDILOL 3.125 MG TABLET PO SCH ×2 (09:00→21:51)
[2020-03-21] MEDS: LISINOPRIL 40MG TABLET PO SCH (09:00)
[2020-03-21] MEDS: DEXT 5%/0.45% NACL KCL 40MEQ/L 1,000 ML IV SCH (10:50)
[2020-03-21] MEDS ORDERED: THROMBIN (BOVINE) 5000 UNITS/VIAL TOP ONE (12:03)
[2020-03-21] MEDS ORDERED: ACETAMINOPHEN 650MG SUPP PR PRN (12:30)
[2020-03-21] MEDS ORDERED: ONDANSETRON HCL 4MG/2ML INJ IV PRN ×2 (12:30→15:15)
[2020-03-21] MEDS ORDERED: IODIXANOL 320MG/ML 100 ML BOTTLE IV ONE (12:35)
[2020-03-21] MEDS ORDERED: SUCCINYLCHOLINE CHLORIDE 200MG/10ML IV ONE (12:35)
[2020-03-21] MEDS ORDERED: MIDAZOLAM HCL 5 MG/5 ML VIAL ONE (12:35)
[2020-03-21] MEDS ORDERED: CEFAZOLIN SODIUM 1000MG/VIAL ONE (12:35)
[2020-03-21] MEDS ORDERED: PROPOFOL 10MG/ML 100ML 100 ML IV ONE (12:36)
[2020-03-21] MEDS ORDERED: IOHEXOL-300 100 ML BOTTLE ONE (12:51)
[2020-03-21] MEDS ORDERED: LIDOCAINE HCL 1% 20ML VIAL (Pyxis) INJ ONE (13:03)
[2020-03-21] MEDS ORDERED: HEPARIN 1000 UNITS/ML 10ML ONE (13:23)
[2020-03-21] MEDS ORDERED: PROTAMINE SULFATE 10MG/ML VIAL 5ML IV ONE (14:31)
[2020-03-21] MEDS ORDERED: SODIUM CHLORIDE 0.9% 1,000 ML IV ONE (15:01)
[2020-03-21] MEDS ORDERED: MORPHINE SULFATE 2 MG/ML CPJ (NOT FOR IM USE) IV PRN (15:15)
[2020-03-21] MEDS: HYDROMORPHONE HCL/PF 2MG/ML CPJ IV PRN ×2 (15:45→18:12)
[2020-03-21] MEDS: TEMAZEPAM 15MG CAPSULE PO PRN (21:45)
[2020-03-21] MEDS: CEFTRIAXONE 1,000 MG in DEXTROSE 5% WATER 50 ML IV SCH (21:45)
[2020-03-22] VITALS (10 sets, daily range): BP systolic 137–168; BP diastolic 70–94
[2020-03-22] MEDS: DEXT 5%/0.45% NACL KCL 40MEQ/L 1,000 ML IV SCH (03:15)
[2020-03-22] MEDS: DILTIAZEM HCL 30MG TABLET PO SCH ×2 (06:07→14:00)
[2020-03-22] MEDS: HYDRALAZINE HCL 50MG TABLET PO SCH ×2 (06:07→14:19)
[2020-03-22] MEDS: MORPHINE SULFATE 2 MG/ML CPJ (NOT FOR IM USE) IV PRN ×2 (06:57→14:20)
[2020-03-22] MEDS: CLONIDINE 0.1MG TABLET PO PRN (07:00)
[2020-03-22 07:11] LABS: HEMATOCRIT 34.7 % (42.0-52.0); HEMOGLOBIN 11.5 g/dL (14.0-18.0); MEAN CORPUSCULAR HEMOGLOBIN 29.9 pg (28.0-32.0); MEAN CORPUSCULAR VOLUME 90.3 fL (80.0-94.0); PLATELET 269 x1000/uL (130-400); RED BLOOD CELL COUNT 3.85 mill/uL (4.7-6.1); RED CELL DISTRIBUTION WIDTH 17.8 % (11.6-14.6)
[2020-03-22] MEDS: CARVEDILOL 3.125 MG TABLET PO SCH (09:00)
[2020-03-22] MEDS: LISINOPRIL 40MG TABLET PO SCH (09:41)
[2020-03-22] MEDS: AMIODARONE HCL 200 MG TABLET PO SCH (09:41)
[2020-03-22] MEDS ORDERED: RIVA20TA PO (15:09)
== END 2020-03-22 16:49 | disposition home or self-care (01) | DRG 710 ==
LOC: ER 11:08 → 3WST 15:24 → ENRESERV 17:12
PROVIDERS: ADMIT Internal Medicine; ATTEND Internal Medicine
PROC: B41G1ZZ Fluoroscopy of Left Lower Extremity Arteries using Low Osmolar Contrast (ICD-10-PCS; principal; 2020-03-21)
PROC: 047C3ZZ Dilation of Right Common Iliac Artery, Percutaneous Approach (ICD-10-PCS; 2020-03-21)
PROC: 02VW3DZ Restriction of Thoracic Aorta, Descending with Intraluminal Device, Percutaneous Approach (ICD-10-PCS; 2020-03-21)
PROC: 04V03DZ Restriction of Abdominal Aorta with Intraluminal Device, Percutaneous Approach (ICD-10-PCS; 2020-03-21)
PROC: 04VC3DZ Restriction of Right Common Iliac Artery with Intraluminal Device, Percutaneous Approach (ICD-10-PCS; 2020-03-21)
PROC: 04VH3DZ Restriction of Right External Iliac Artery with Intraluminal Device, Percutaneous Approach (ICD-10-PCS; 2020-03-21)
DX: A41.51 Sepsis due to Escherichia coli [E. coli] (principal); K52.9 Noninfective gastroenteritis and colitis, unspecified; K82.8 Other specified diseases of gallbladder; M47.9 Spondylosis, unspecified; N18.9 Chronic kidney disease, unspecified; N39.0 Urinary tract infection, site not specified; J98.11 Atelectasis; I72.3 Aneurysm of iliac artery; E87.6 Hypokalemia; I13.0 Hypertensive heart and chronic kidney disease with heart failure and stage 1 through stage 4 chronic kidney disease, or unspecified chronic kidney disease; I48.20 Chronic atrial fibrillation, unspecified; D64.9 Anemia, unspecified; J96.00 Acute respiratory failure, unspecified whether with hypoxia or hypercapnia; R00.1 Bradycardia, unspecified; E43 Unspecified severe protein-calorie malnutrition; R74.0 Nonspecific elevation of levels of transaminase and lactic acid dehydrogenase [LDH]; Z20.828 Contact with and (suspected) exposure to other viral communicable diseases; L89.153 Pressure ulcer of sacral region, stage 3; I50.33 Acute on chronic diastolic (congestive) heart failure; Z86.73 Personal history of transient ischemic attack (TIA), and cerebral infarction without residual deficits; Z87.891 Personal history of nicotine dependence; Z68.25 Body mass index [BMI] 25.0-25.9, adult
CPT/HCPCS: 34703; 34808; 36415; 71045; 74174; 74176; 75630; 80048; 80053; 81003; 82040; 82962; 83735; 84100; 84134; 85025; 85027; 85347; 86850; 86900; 87186; 87635; 93005; 99285; A4657; C1760; C1769; C1874; C1887; C1893; C1894; J0330; J0360; J0690; J0696; J1170; J1200; J1644; J2250; J2270; J2405; J2704; J2720; J3475; J3490; J7060; Q9967

== ENCOUNTER 2020-03-28 09:47 | Inpatient (IN) | payer MEDICAID ==
[~2020-03-28] VITALS: Ht 180.3 cm; Wt 66.2 kg
[~2020-03-28 09:47] MED LIST changes: +AMI2 PO; -CARV12.545 MT; +CARV3.1242 PO; +DILT30TA3 PO
[2020-03-28 10:35] LABS: BASOPHILS % 1.7 % (0.0-2.0); EOSINOPHILS % 0.9 % (0.0-5.0); HEMATOCRIT. 33.2 % (42.0-52.0); HEMOGLOBIN. 11.2 g/dL (14.0-18.0); LYMPHOCYTES % 23.2 % (20.0-50.0); MEAN CORPUSCULAR HEMOGLOBIN 30.3 pg (28.0-32.0); MEAN PLATELET VOLUME 8.3 fl (7.4-10.4); MONOCYTES % 9.4 % (2.0-8.0); NEUTROPHILS % 64.8 % (40.0-76.0); PLATELET 378 x1000/uL (130-400); RED BLOOD CELL COUNT 3.69 mill/uL (4.7-6.1); RED CELL DISTRIBUTION WIDTH 17.6 % (11.6-14.6)
[2020-03-28 11:05] LABS: CHLORIDE 105 mEq/L (98-107)
[2020-03-28 11:23] LABS: INR 1.1; PROTHROMBIN TIME 11.8 sec (9.6-11.0)
[2020-03-28] MEDS ORDERED: ONDANSETRON HCL 4MG/2ML INJ IV STA (12:27)
[2020-03-28] MEDS ORDERED: MORPHINE SULFATE 4 MG/ML CPJ (NOT FOR IM USE) IV STA (12:27)
[2020-03-28] MEDS ORDERED: IPRATROPIUM/ALBUTEROL 0.5-3(2.5)MG/3ML NEB NEB PRN (15:30)
[2020-03-28] MEDS ORDERED: NITROGLYCERIN 0.4MG TABLET SL SL PRN (15:30)
[2020-03-28] MEDS ORDERED: GUAIFENESIN 200MG/10ML SUGAR FREE UDC PO PRN (15:30)
[2020-03-28] MEDS ORDERED: LORAZEPAM 0.5MG TABLET PO PRN (15:30)
[2020-03-28] MEDS ORDERED: MAGNESIUM/ALUMINUM HYDROXIDE/SIMETHICONE 30ML UDC PO PRN (15:30)
[2020-03-28] MEDS ORDERED: ACETAMINOPHEN 325MG TABLET PO PRN ×2 (15:30)
[2020-03-28] MEDS ORDERED: ONDANSETRON HCL 4MG/2ML INJ IV PRN (15:30)
[2020-03-28] MEDS ORDERED: ENOXAPARIN 40MG/0.4ML SYR SUBCUT SCH (16:00)
[2020-03-28] MEDS ORDERED: RIVAROXABAN 20 MG TABLET PO SCH (17:00)
[2020-03-28] MEDS: DILTIAZEM HCL 60MG TABLET PO SCH (17:27)
[2020-03-28] MEDS: CLONIDINE 0.1MG TABLET PO PRN (17:27)
[2020-03-28] MEDS: CARVEDILOL 3.125 MG TABLET PO SCH (17:27)
[2020-03-28 18:39] LABS: *AMPHETAMINES SCREEN URINE NEGATIVE (NEGATIVE); *BARBITURATES SCREEN URINE NEGATIVE (NEGATIVE); *BENZODIAZEPINES SCREEN URINE NEGATIVE (NEGATIVE); *COCAINE SCREEN URINE NEGATIVE (NEGATIVE); METHADONE URINE SCREEN NEGATIVE (NEGATIVE); OPIATES URINE SCREEN NEGATIVE (NEGATIVE)
[2020-03-28 18:40] LABS: CANNABINOID URINE SCREEN NEGATIVE (NEGATIVE); PHENCYCLIDINE URINE SCREEN NEGATIVE (NEGATIVE)
[2020-03-28] MEDS ORDERED: IOHEXOL-350 100 ML BOTTLE ONE (19:10)
[2020-03-28 19:48] LABS: ETHANOL BLOOD < 10 mg/dL
[2020-03-28 19:49] LABS: TOTAL IRON BINDING CAPACITY 211 ug/dL (250-450)
[2020-03-28 19:53] LABS: T4 FREE 1.85 ng/dL (0.76-1.46)
[2020-03-28] MEDS: ASCORBIC ACID 500 MG TABLET PO SCH (21:21)
[2020-03-28] MEDS: FAMOTIDINE 20MG TABLET PO SCH (21:21)
[2020-03-28] MEDS: LISINOPRIL 20MG TABLET PO SCH (21:21)
[2020-03-28 21:27] LABS: VITAMIN B12 SERUM >2000 pg/mL pg/mL (211-911)
[2020-03-28 23:16] LABS: CREATINE KINASE 28 IU/L (39-308)
[2020-03-28 23:17] LABS: CREATINE KINASE MB FRACTION < 1.0 ng/mL (0.5-3.6)
[2020-03-29] VITALS (45 sets, daily range): BP systolic 119–176; BP diastolic 75–105
[2020-03-29] MEDS: CLONIDINE 0.1MG TABLET PO PRN (01:18)
[2020-03-29] MEDS: DILTIAZEM HCL 60MG TABLET PO SCH ×3 (01:19→10:11)
[2020-03-29] MEDS: KETOROLAC 15MG/ML VIAL IV PRN (03:06)
[2020-03-29 05:54] LABS: BASOPHILS % 1.2 % (0.0-2.0); EOSINOPHILS % 1.1 % (0.0-5.0); HEMATOCRIT. 30.5 % (42.0-52.0); HEMOGLOBIN. 10.2 g/dL (14.0-18.0); LYMPHOCYTES % 17.6 % (20.0-50.0); MEAN CORPUSCULAR HEMOGLOBIN 29.7 pg (28.0-32.0); MEAN CORPUSCULAR VOLUME 88.5 fL (80.0-94.0); MEAN PLATELET VOLUME 8.1 fl (7.4-10.4); MONOCYTES % 10.3 % (2.0-8.0); NEUTROPHILS % 69.8 % (40.0-76.0); PLATELET 392 x1000/uL (130-400); RED BLOOD CELL COUNT 3.45 mill/uL (4.7-6.1); RED CELL DISTRIBUTION WIDTH 17.1 % (11.6-14.6)
[2020-03-29] MEDS: CARVEDILOL 3.125 MG TABLET PO SCH ×2 (06:00→10:12)
[2020-03-29 06:06] LABS: CHLORIDE 104 mEq/L (98-107)
[2020-03-29 06:18] LABS: CREATINE KINASE MB FRACTION < 1.0 ng/mL (0.5-3.6)
[2020-03-29 06:22] LABS: CREATINE KINASE 24 IU/L (39-308); PHOSPHORUS 3.6 mg/dL (2.5-4.9)
[2020-03-29 06:23] LABS: HDL CHOLESTEROL 33 mg/dL (40-59); LDL CHOLESTEROL 39 mg/dL (5-100)
[2020-03-29] MEDS: ZINC SULFATE 220 MG ( 50 ) CAPSULE PO SCH (10:13)
[2020-03-29] MEDS: ASPIRIN 81MG EC TABLET PO SCH (10:13)
[2020-03-29] MEDS: ASCORBIC ACID 500 MG TABLET PO SCH ×2 (10:13→21:08)
[2020-03-29] MEDS: AMIODARONE HCL 200 MG TABLET PO SCH (10:13)
[2020-03-29] MEDS: FAMOTIDINE 20MG TABLET PO SCH ×2 (10:13→21:08)
[2020-03-29] MEDS: LISINOPRIL 20MG TABLET PO SCH ×2 (10:14→21:09)
[2020-03-29] MEDS ORDERED: PNEUMOCOCCAL 23-VAL P-SAC VAC 0.5 ML IM ONE (12:00)
[2020-03-29] MEDS: ZOLPIDEM TARTRATE 5MG TABLET PO PRN (21:09)
[2020-03-30] VITALS (45 sets, daily range): BP systolic 125–185; BP diastolic 72–109
[2020-03-30 05:44] LABS: BASOPHILS % 1.1 % (0.0-2.0); EOSINOPHILS % 1.9 % (0.0-5.0); HEMATOCRIT. 30.5 % (42.0-52.0); HEMOGLOBIN. 10.2 g/dL (14.0-18.0); MEAN CORPUSCULAR HEMOGLOBIN 29.8 pg (28.0-32.0); MEAN CORPUSCULAR VOLUME 89.4 fL (80.0-94.0); MEAN PLATELET VOLUME 7.8 fl (7.4-10.4); MONOCYTES % 10.9 % (2.0-8.0); NEUTROPHILS % 65.1 % (40.0-76.0); PLATELET 439 x1000/uL (130-400); RED BLOOD CELL COUNT 3.41 mill/uL (4.7-6.1)
[2020-03-30 05:50] LABS: CHLORIDE 103 mEq/L (98-107)
[2020-03-30 05:52] LABS: INR 1.1
[2020-03-30] MEDS ORDERED: KCL 20MEQ/100ML PREMIX 100 ML IV SCH (11:00)
[2020-03-30] MEDS ORDERED: FENTANYL CITRATE/PF 50MCG/ML 2ML VIAL ONE (11:11)
[2020-03-30] MEDS ORDERED: MIDAZOLAM HCL 2 MG/2 ML VIAL ONE (11:11)
[2020-03-30] MEDS ORDERED: IOHEXOL-300 100 ML BOTTLE ONE (11:12)
[2020-03-30] MEDS ORDERED: IODIXANOL 320MG/ML 100 ML BOTTLE IV ONE (11:12)
[2020-03-30] MEDS ORDERED: LIDOCAINE HCL 1% 20ML VIAL (Pyxis) INJ ONE (11:12)
[2020-03-30] MEDS: FAMOTIDINE 20MG TABLET PO SCH ×2 (14:20→23:14)
[2020-03-30] MEDS: LISINOPRIL 20MG TABLET PO SCH ×2 (14:20→23:14)
[2020-03-30] MEDS: AMIODARONE HCL 200 MG TABLET PO SCH (14:21)
[2020-03-30] MEDS: DOCUSATE SODIUM 100MG CAPSULE PO PRN (14:21)
[2020-03-30] MEDS: ASCORBIC ACID 500 MG TABLET PO SCH ×2 (14:21→23:14)
[2020-03-30] MEDS: ZINC SULFATE 220 MG ( 50 ) CAPSULE PO SCH (14:21)
[2020-03-30] MEDS: ASPIRIN 81MG EC TABLET PO SCH (15:00)
[2020-03-30] MEDS: KETOROLAC 15MG/ML VIAL IV PRN (15:28)
[2020-03-30] MEDS ORDERED: AMLODIPINE 5MG TABLET PO SCH (16:00)
[2020-03-30] MEDS ORDERED: ENALAPRIL 1.25MG/ML VIAL 1ML IV PRN (16:00)
[2020-03-30] MEDS: ZOLPIDEM TARTRATE 5MG TABLET PO PRN (23:14)
[2020-03-31] VITALS (54 sets, daily range): BP systolic 127–187; BP diastolic 68–126
[2020-03-31] MEDS: KETOROLAC 15MG/ML VIAL IV PRN ×2 (04:46→16:40)
[2020-03-31 06:21] LABS: INR 1.1; PROTHROMBIN TIME 11.7 sec (9.6-11.0)
[2020-03-31 06:23] LABS: CHLORIDE 103 mEq/L (98-107)
[2020-03-31 06:51] LABS: BASOPHILS % 0.9 % (0.0-2.0); HEMATOCRIT. 30.6 % (42.0-52.0); HEMOGLOBIN. 10.2 g/dL (14.0-18.0); LYMPHOCYTES % 16.4 % (20.0-50.0); MEAN CORPUSCULAR HEMOGLOBIN 29.8 pg (28.0-32.0); MEAN CORPUSCULAR VOLUME 88.9 fL (80.0-94.0); MEAN PLATELET VOLUME 8.1 fl (7.4-10.4); MONOCYTES % 9.3 % (2.0-8.0); NEUTROPHILS % 71.4 % (40.0-76.0); PLATELET 436 x1000/uL (130-400); RED BLOOD CELL COUNT 3.44 mill/uL (4.7-6.1)
[2020-03-31] MEDS ORDERED: POTASSIUM CHLORIDE 20MEQ/PACKET PO SCH (08:45)
[2020-03-31] MEDS: ASPIRIN 81MG EC TABLET PO SCH (09:18)
[2020-03-31] MEDS: ZINC SULFATE 220 MG ( 50 ) CAPSULE PO SCH (09:18)
[2020-03-31] MEDS: ASCORBIC ACID 500 MG TABLET PO SCH ×2 (09:18→20:30)
[2020-03-31] MEDS: FAMOTIDINE 20MG TABLET PO SCH ×2 (09:18→20:30)
[2020-03-31] MEDS: AMLODIPINE 5MG TABLET PO SCH (09:27)
[2020-03-31] MEDS: LISINOPRIL 20MG TABLET PO SCH ×2 (09:28→20:30)
[2020-03-31] MEDS: AMIODARONE HCL 200 MG TABLET PO SCH (09:28)
[2020-03-31] MEDS: DOCUSATE SODIUM 100MG CAPSULE PO PRN (16:39)
[2020-03-31] MEDS: ZOLPIDEM TARTRATE 5MG TABLET PO PRN (20:30)
[2020-03-31] MEDS: CLONIDINE 0.1MG TABLET PO PRN (21:52)
[2020-04-01] VITALS (10 sets, daily range): BP systolic 133–164; BP diastolic 73–95
[2020-04-01] MEDS: KETOROLAC 15MG/ML VIAL IV PRN (07:39)
[2020-04-01] MEDS: ASCORBIC ACID 500 MG TABLET PO SCH (09:29)
[2020-04-01] MEDS: ZINC SULFATE 220 MG ( 50 ) CAPSULE PO SCH (09:29)
[2020-04-01] MEDS: LISINOPRIL 20MG TABLET PO SCH (09:30)
[2020-04-01] MEDS: FAMOTIDINE 20MG TABLET PO SCH (09:30)
[2020-04-01] MEDS: AMIODARONE HCL 200 MG TABLET PO SCH (09:30)
[2020-04-01] MEDS: ASPIRIN 81MG EC TABLET PO SCH (09:30)
[2020-04-01] MEDS: AMLODIPINE 5MG TABLET PO SCH (09:31)
[2020-04-01] MEDS ORDERED: POTASSIUM CHLORIDE 20MEQ TABLET SR PO SCH ×2 (13:15→14:00)
== END 2020-04-01 14:27 | disposition home health service (06) | DRG 206 ==
LOC: ER 09:47 → EDBEDREQ 13:54 → EDBEDREQTM 13:54 → CVICU 15:10 → EDBEDREQTM 15:12 → EDBEDREQ 15:12 → EDBEDREQSVC 15:32 → EDBEDREQ 15:32 → ENRESERV 23:11 → 3WST 03-31 22:07
PROVIDERS: ADMIT Internal Medicine; ATTEND Internal Medicine
PROC: B41F1ZZ Fluoroscopy of Right Lower Extremity Arteries using Low Osmolar Contrast (ICD-10-PCS; principal; 2020-03-30)
PROC: 3E053GC Introduction of Other Therapeutic Substance into Peripheral Artery, Percutaneous Approach (ICD-10-PCS; 2020-03-30)
DX: T82.538A Leakage of other cardiac and vascular devices and implants, initial encounter (principal); I72.3 Aneurysm of iliac artery; I16.1 Hypertensive emergency; E83.51 Hypocalcemia; E43 Unspecified severe protein-calorie malnutrition; D63.8 Anemia in other chronic diseases classified elsewhere; I48.20 Chronic atrial fibrillation, unspecified; I50.32 Chronic diastolic (congestive) heart failure; J98.11 Atelectasis; K82.8 Other specified diseases of gallbladder; E78.5 Hyperlipidemia, unspecified; Z20.828 Contact with and (suspected) exposure to other viral communicable diseases; I11.0 Hypertensive heart disease with heart failure; R74.0 Nonspecific elevation of levels of transaminase and lactic acid dehydrogenase [LDH]; K40.90 Unilateral inguinal hernia, without obstruction or gangrene, not specified as recurrent; I48.0 Paroxysmal atrial fibrillation; K21.9 Gastro-esophageal reflux disease without esophagitis; Z82.49 Family history of ischemic heart disease and other diseases of the circulatory system; Z68.20 Body mass index [BMI] 20.0-20.9, adult; Z86.73 Personal history of transient ischemic attack (TIA), and cerebral infarction without residual deficits; Z79.899 Other long term (current) drug therapy; M94.0 Chondrocostal junction syndrome [Tietze]
CPT/HCPCS: 36415; 37242; 71045; 71275; 74174; 80048; 80053; 80061; 80305; 80320; 82550; 82553; 82607; 82746; 82962; 83036; 83540; 83550; 83735; 83880; 84100; 84439; 84443; 84484; 85025; 87635; 93005; 93306; 93970; 96374; 97162; 97166; 99291; C1760; C1769; C1893; J1644; J1885; J2250; J2270; J2405; J3010; J3480; J3490; Q9967; G0480

== ENCOUNTER 2020-04-07 17:13 | Inpatient (IN) | payer MEDICAID ==
[~2020-04-07] VITALS: Ht 180.3 cm; Wt 72.6 kg
[2020-04-07] MEDS ORDERED: MORPHINE SULFATE 2 MG/ML CPJ (NOT FOR IM USE) IV ONE (18:15)
[2020-04-07 18:50] LABS: BASOPHILS % 0.8 % (0.0-2.0); EOSINOPHILS % 0.9 % (0.0-5.0); HEMATOCRIT. 37.7 % (42.0-52.0); LYMPHOCYTES % 21.6 % (20.0-50.0); MEAN CORPUSCULAR HEMOGLOBIN 28.9 pg (28.0-32.0); MEAN CORPUSCULAR VOLUME 90.5 fL (80.0-94.0); MEAN PLATELET VOLUME 7.8 fl (7.4-10.4); MONOCYTES % 9.4 % (2.0-8.0); NEUTROPHILS % 67.3 % (40.0-76.0); PLATELET 359 x1000/uL (130-400); RED BLOOD CELL COUNT 4.16 mill/uL (4.7-6.1); RED CELL DISTRIBUTION WIDTH 17.7 % (11.6-14.6)
[2020-04-07 18:53] LABS: CHLORIDE 106 mEq/L (98-107)
[2020-04-07] MEDS ORDERED: LABETALOL 5MG/ML SYR 20 MG/4 ML SYRINGE IV NR (20:45)
[2020-04-07] MEDS ORDERED: GUAIFENESIN 200MG/10ML SUGAR FREE UDC PO PRN (21:30)
[2020-04-07] MEDS ORDERED: MAGNESIUM/ALUMINUM HYDROXIDE/SIMETHICONE 30ML UDC PO PRN (21:30)
[2020-04-07] MEDS ORDERED: ACETAMINOPHEN 325MG TABLET PO PRN (21:30)
[2020-04-07] MEDS ORDERED: IPRATROPIUM/ALBUTEROL 0.5-3(2.5)MG/3ML NEB NEB PRN (21:30)
[2020-04-07] MEDS ORDERED: ONDANSETRON HCL 4MG/2ML INJ IV PRN (21:30)
[2020-04-07] MEDS ORDERED: NITROGLYCERIN 0.4MG TABLET SL SL PRN (21:30)
[2020-04-07] MEDS: HYDRALAZINE HCL 50MG TABLET PO SCH (22:00)
[2020-04-07 22:08] LABS: PROTHROMBIN TIME 10.8 sec (9.6-11.0)
[2020-04-07 22:12] LABS: ETHANOL BLOOD < 10 mg/dL
[2020-04-07 22:14] LABS: TOTAL IRON BINDING CAPACITY 147 ug/dL (250-450)
[2020-04-07 22:15] LABS: LDL CHOLESTEROL 32 mg/dL (5-100)
[2020-04-07 22:16] LABS: HDL CHOLESTEROL 27 mg/dL (40-59)
[2020-04-07 22:42] LABS: VITAMIN B12 SERUM > 2000.0 pg/mL (211-911)
[2020-04-08] VITALS (12 sets, daily range): BP systolic 128–181; BP diastolic 71–100
[2020-04-08 00:17] LABS: CREATINE KINASE 26 IU/L (39-308)
[2020-04-08 00:19] LABS: CREATINE KINASE MB FRACTION < 1.0 ng/mL (0.5-3.6)
[2020-04-08] MEDS: KETOROLAC 15MG/ML VIAL IV PRN (02:50)
[2020-04-08] MEDS: DILTIAZEM HCL 60MG TABLET PO SCH ×3 (02:50→12:00)
[2020-04-08] MEDS: ZOLPIDEM TARTRATE 5MG TABLET PO PRN ×2 (02:50→21:25)
[2020-04-08] MEDS: HYDRALAZINE HCL 50MG TABLET PO SCH ×3 (06:00→21:36)
[2020-04-08 07:20] LABS: CREATINE KINASE 27 IU/L (39-308); CREATINE KINASE MB FRACTION < 1.0 ng/mL (0.5-3.6)
[2020-04-08] MEDS: DOCUSATE SODIUM 100MG CAPSULE PO PRN (09:08)
[2020-04-08] MEDS: FAMOTIDINE 20MG TABLET PO SCH ×2 (09:09→20:28)
[2020-04-08] MEDS: AMIODARONE HCL 200 MG TABLET PO SCH (09:09)
[2020-04-08] MEDS: ASPIRIN 81MG EC TABLET PO SCH (09:09)
[2020-04-08] MEDS: LISINOPRIL 20MG TABLET PO SCH ×2 (09:09→20:27)
[2020-04-08] MEDS ORDERED: PNEUMOCOCCAL 23-VAL P-SAC VAC 0.5 ML IM ONE (12:00)
[2020-04-08 13:07] LABS: BASOPHILS % 0.7 % (0.0-2.0); EOSINOPHILS % 0.9 % (0.0-5.0); HEMATOCRIT. 30.1 % (42.0-52.0); HEMOGLOBIN. 10.2 g/dL (14.0-18.0); LYMPHOCYTES % 21.1 % (20.0-50.0); MEAN CORPUSCULAR HEMOGLOBIN 29.6 pg (28.0-32.0); MEAN CORPUSCULAR VOLUME 87.7 fL (80.0-94.0); NEUTROPHILS % 67.3 % (40.0-76.0); PLATELET 345 x1000/uL (130-400); RED BLOOD CELL COUNT 3.43 mill/uL (4.7-6.1); RED CELL DISTRIBUTION WIDTH 16.7 % (11.6-14.6)
[2020-04-08 13:13] LABS: CHLORIDE 109 mEq/L (98-107)
[2020-04-08] MEDS ORDERED: POTASSIUM CHLORIDE 20MEQ TABLET SR PO SCH (16:00)
[2020-04-08] MEDS: RIVAROXABAN 20 MG TABLET PO SCH (17:29)
[2020-04-09] VITALS (12 sets, daily range): BP systolic 115–172; BP diastolic 79–103
[2020-04-09] MEDS: CLONIDINE 0.1MG TABLET PO PRN (00:01)
[2020-04-09] MEDS: HYDRALAZINE HCL 50MG TABLET PO SCH ×3 (05:49→21:58)
[2020-04-09] MEDS: DOCUSATE SODIUM 100MG CAPSULE PO PRN (08:40)
[2020-04-09] MEDS: FAMOTIDINE 20MG TABLET PO SCH ×2 (08:40→20:26)
[2020-04-09] MEDS: LISINOPRIL 20MG TABLET PO SCH ×2 (08:40→20:26)
[2020-04-09] MEDS: AMIODARONE HCL 200 MG TABLET PO SCH (08:40)
[2020-04-09] MEDS: ASPIRIN 81MG EC TABLET PO SCH (08:40)
[2020-04-09] MEDS ORDERED: POTASSIUM CHLORIDE 20MEQ TABLET SR PO SCH (09:15)
[2020-04-09 10:58] LABS: BASOPHILS % 0.8 % (0.0-2.0); EOSINOPHILS % 0.6 % (0.0-5.0); HEMATOCRIT. 31.6 % (42.0-52.0); HEMOGLOBIN. 10.4 g/dL (14.0-18.0); LYMPHOCYTES % 13.9 % (20.0-50.0); MEAN CORPUSCULAR VOLUME 88.1 fL (80.0-94.0); MEAN PLATELET VOLUME 8.1 fl (7.4-10.4); NEUTROPHILS % 75.7 % (40.0-76.0); PLATELET 361 x1000/uL (130-400); RED BLOOD CELL COUNT 3.59 mill/uL (4.7-6.1); RED CELL DISTRIBUTION WIDTH 16.7 % (11.6-14.6)
[2020-04-09 11:27] LABS: CHLORIDE 105 mEq/L (98-107)
[2020-04-09] MEDS: ACETAMINOPHEN 325MG TABLET PO PRN ×2 (11:48→20:27)
[2020-04-09] MEDS: KETOROLAC 15MG/ML VIAL IV PRN (16:30)
[2020-04-09] MEDS: RIVAROXABAN 20 MG TABLET PO SCH (16:52)
[2020-04-09] MEDS: ZOLPIDEM TARTRATE 5MG TABLET PO PRN (20:26)
[2020-04-10] VITALS (14 sets, daily range): BP systolic 120–190; BP diastolic 50–95
[2020-04-10] MEDS: CLONIDINE 0.1MG TABLET PO PRN (03:38)
[2020-04-10] MEDS: KETOROLAC 15MG/ML VIAL IV PRN ×3 (03:40→20:43)
[2020-04-10] MEDS: HYDRALAZINE HCL 50MG TABLET PO SCH ×3 (06:14→23:28)
[2020-04-10] MEDS: DOCUSATE SODIUM 100MG CAPSULE PO PRN ×2 (08:14→16:43)
[2020-04-10] MEDS: FAMOTIDINE 20MG TABLET PO SCH ×2 (08:14→20:36)
[2020-04-10] MEDS: LISINOPRIL 20MG TABLET PO SCH ×2 (08:15→20:35)
[2020-04-10] MEDS: AMIODARONE HCL 200 MG TABLET PO SCH (08:15)
[2020-04-10] MEDS: ASPIRIN 81MG EC TABLET PO SCH (08:15)
[2020-04-10] MEDS: AMLODIPINE 5MG TABLET PO SCH (10:54)
[2020-04-10] MEDS ORDERED: ATOR-2 PO (12:06)
[2020-04-10] MEDS ORDERED: VIT B12 (12:06)
[2020-04-10] MEDS ORDERED: TAMS-11 PO (12:06)
[2020-04-10] MEDS ORDERED: ASPI81TA47 PO (12:06)
[2020-04-10] MEDS: LIDOCAINE 5% PATCH TOP SCH (13:34)
[2020-04-10] MEDS: RIVAROXABAN 20 MG TABLET PO SCH (16:43)
[2020-04-10] MEDS: ZOLPIDEM TARTRATE 5MG TABLET PO PRN (23:28)
[2020-04-11] VITALS (16 sets, daily range): BP systolic 129–165; BP diastolic 46–93
[2020-04-11] MEDS: HYDRALAZINE HCL 50MG TABLET PO SCH ×3 (06:30→21:26)
[2020-04-11] MEDS: DOCUSATE SODIUM 100MG CAPSULE PO PRN (09:19)
[2020-04-11] MEDS: LIDOCAINE 5% PATCH TOP SCH (09:19)
[2020-04-11] MEDS: AMIODARONE HCL 200 MG TABLET PO SCH (09:19)
[2020-04-11] MEDS: FAMOTIDINE 20MG TABLET PO SCH ×2 (09:20→20:56)
[2020-04-11] MEDS: LISINOPRIL 20MG TABLET PO SCH ×2 (09:20→20:57)
[2020-04-11] MEDS: ASPIRIN 81MG EC TABLET PO SCH (09:20)
[2020-04-11] MEDS: AMLODIPINE 5MG TABLET PO SCH (09:20)
[2020-04-11] MEDS: ACETAMINOPHEN 325MG TABLET PO PRN ×3 (12:41→21:26)
[2020-04-11] MEDS: KETOROLAC 15MG/ML VIAL IV PRN (13:55)
[2020-04-11] MEDS: LORAZEPAM 0.5MG TABLET PO PRN ×2 (14:45→21:25)
[2020-04-11] MEDS: RIVAROXABAN 20 MG TABLET PO SCH (17:20)
[2020-04-11] MEDS: CLONIDINE 0.1MG TABLET PO PRN (20:56)
[2020-04-11] MEDS: ZOLPIDEM TARTRATE 5MG TABLET PO PRN (20:57)
[2020-04-12] VITALS (13 sets, daily range): BP systolic 127–174; BP diastolic 73–97
[2020-04-12] MEDS: HYDRALAZINE HCL 50MG TABLET PO SCH ×3 (06:23→21:10)
[2020-04-12] MEDS: KETOROLAC 15MG/ML VIAL IV PRN ×2 (06:39→20:36)
[2020-04-12] MEDS: DOCUSATE SODIUM 100MG CAPSULE PO PRN ×2 (06:39→14:06)
[2020-04-12] MEDS: FAMOTIDINE 20MG TABLET PO SCH ×2 (08:11→20:32)
[2020-04-12] MEDS: LIDOCAINE 5% PATCH TOP SCH (08:11)
[2020-04-12] MEDS: LISINOPRIL 20MG TABLET PO SCH ×2 (08:11→20:32)
[2020-04-12] MEDS: ASPIRIN 81MG EC TABLET PO SCH (08:11)
[2020-04-12] MEDS: AMIODARONE HCL 200 MG TABLET PO SCH (08:11)
[2020-04-12] MEDS: AMLODIPINE 10MG TABLET PO SCH (08:12)
[2020-04-12] MEDS: ACETAMINOPHEN 325MG TABLET PO PRN (10:44)
[2020-04-12] MEDS ORDERED: LACTULOSE 20G/30ML UDC PO NR (14:15)
[2020-04-12] MEDS ORDERED: BISACODYL 10MG SUPP PR NR (14:30)
[2020-04-12] MEDS: RIVAROXABAN 20 MG TABLET PO SCH (16:55)
[2020-04-12] MEDS: ZOLPIDEM TARTRATE 5MG TABLET PO PRN (20:32)
[2020-04-12] MEDS: LORAZEPAM 0.5MG TABLET PO PRN (21:10)
[2020-04-13] VITALS (9 sets, daily range): BP systolic 134–157; BP diastolic 71–91
[2020-04-13] MEDS: ACETAMINOPHEN 325MG TABLET PO PRN ×3 (01:00→09:06)
[2020-04-13] MEDS: HYDRALAZINE HCL 50MG TABLET PO SCH ×2 (05:11→14:39)
[2020-04-13] MEDS: ASPIRIN 81MG EC TABLET PO SCH (08:32)
[2020-04-13] MEDS: FAMOTIDINE 20MG TABLET PO SCH (08:34)
[2020-04-13] MEDS: AMIODARONE HCL 200 MG TABLET PO SCH (08:34)
[2020-04-13] MEDS: AMLODIPINE 10MG TABLET PO SCH (08:34)
[2020-04-13] MEDS: LISINOPRIL 20MG TABLET PO SCH (08:34)
[2020-04-13] MEDS: LIDOCAINE 5% PATCH TOP SCH (08:37)
[2020-04-13] MEDS ORDERED: MULTIVITAMINS,THER W-MINERALS TABLET PO SCH (09:00)
[2020-04-13] MEDS ORDERED: BUTALBITAL/ACETAMINOPHEN/CAFFEINE 50/325/40MG TABLET PO PRN (13:00)
[2020-04-13] MEDS: RIVAROXABAN 20 MG TABLET PO SCH (17:20)
== END 2020-04-13 17:42 | DRG 203 ==
LOC: ER 17:13 → MICUSO 21:26 → EDBEDREQ 21:27 → EDBEDREQTM 21:27 → 3WST 22:37
PROVIDERS: ADMIT Internal Medicine; ATTEND Internal Medicine
DX: M94.0 Chondrocostal junction syndrome [Tietze] (principal); I48.0 Paroxysmal atrial fibrillation; E43 Unspecified severe protein-calorie malnutrition; I11.0 Hypertensive heart disease with heart failure; E83.51 Hypocalcemia; E87.1 Hypo-osmolality and hyponatremia; D63.8 Anemia in other chronic diseases classified elsewhere; I50.32 Chronic diastolic (congestive) heart failure; I44.7 Left bundle-branch block, unspecified; Z20.828 Contact with and (suspected) exposure to other viral communicable diseases; R00.1 Bradycardia, unspecified; R56.9 Unspecified convulsions; Z86.73 Personal history of transient ischemic attack (TIA), and cerebral infarction without residual deficits; Z79.01 Long term (current) use of anticoagulants; Z91.19 Patient's noncompliance with other medical treatment and regimen; Z79.899 Other long term (current) drug therapy; Z82.49 Family history of ischemic heart disease and other diseases of the circulatory system; Z68.22 Body mass index [BMI] 22.0-22.9, adult
CPT/HCPCS: 36415; 71045; 80053; 80061; 80320; 82550; 82553; 82607; 82746; 83036; 83540; 83550; 83880; 84443; 84484; 85025; 87426; 90732; 93005; 93970; 97110; 97112; 97162; 97166; 97530; 97535; 99285; J1885; J2270; J2405; J3490; G0480

== ENCOUNTER 2020-09-14 17:05 | Emergency (ER) | payer MEDICARE, MEDICAID ==
[~2020-09-14] VITALS: Ht 190.5 cm; Wt 91.0 kg
[~2020-09-14 17:05] MED LIST changes: +ASPI81TA47 PO; +ATOR-2 PO; +LISI40TA13 PO; -LISI40TA4 PO; -RIVA20TA PO; +TAMS-11 PO; +VIT B12
[2020-09-14 18:45] LABS: BASOPHILS % 0.8 % (0.0-2.0); EOSINOPHILS % 3.1 % (0.0-5.0); HEMATOCRIT. 33.6 % (42.0-52.0); HEMOGLOBIN. 10.9 g/dL (14.0-18.0); LYMPHOCYTES % 31.6 % (20.0-50.0); MEAN CORPUSCULAR HEMOGLOBIN 28.4 pg (28.0-32.0); MEAN CORPUSCULAR VOLUME 87.9 fL (80.0-94.0); MONOCYTES % 7.8 % (2.0-8.0); NEUTROPHILS % 56.7 % (40.0-76.0); PLATELET 270 x1000/uL (130-400); RED BLOOD CELL COUNT 3.82 mill/uL (4.7-6.1); RED CELL DISTRIBUTION WIDTH 15.8 % (11.6-14.6)
[2020-09-14 18:49] LABS: CHLORIDE 107 mEq/L (98-107)
[2020-09-14 20:58] LABS: CLARITY URINE CLEAR (CLEAR); COLOR URINE YELLOW (YELLOW); KETONES URINE NEGATIVE (NEGATIVE); LEUKOCYTE ESTERASE URINE TRACE (NEGATIVE); NITRITE URINE NEGATIVE (NEGATIVE); OCCULT BLOOD URINE 3+ (NEGATIVE); PH URINE 6.5 (4.5-8.0); PROTEIN URINE 3+ (NEGATIVE); SPECIFIC GRAVITY URINE 1.017 (1.005-1.030)
[2020-09-15] MEDS ORDERED: ACETAMINOPHEN 325MG TABLET PO ONE
[2020-09-15 08:08] VITALS: BP 101/68
== END 2020-09-15 08:25 | disposition home or self-care (01) ==
LOC: ER 17:05
DX: N36.8 Other specified disorders of urethra (principal); N40.1 Benign prostatic hyperplasia with lower urinary tract symptoms; R33.8 Other retention of urine; D64.9 Anemia, unspecified; I44.7 Left bundle-branch block, unspecified; I11.0 Hypertensive heart disease with heart failure; I50.9 Heart failure, unspecified; G40.909 Epilepsy, unspecified, not intractable, without status epilepticus; Z86.73 Personal history of transient ischemic attack (TIA), and cerebral infarction without residual deficits
CPT/HCPCS: 36415; 80048; 81003; 85025; 93005; 99285; A4315

== ENCOUNTER 2020-09-15 08:25 | Inpatient (IN) | payer MEDICARE, MEDICAID ==
[~2020-09-15] VITALS: Ht 180.3 cm; Wt 74.5 kg
[2020-09-15] MEDS ORDERED: SODIUM CHLORIDE 0.9% 500 ML IV ONE (09:00)
[2020-09-15 09:47] LABS: HEMATOCRIT. 30.1 % (42.0-52.0); HEMOGLOBIN. 9.8 g/dL (14.0-18.0); MEAN CORPUSCULAR HEMOGLOBIN 28.6 pg (28.0-32.0); MEAN CORPUSCULAR VOLUME 88.3 fL (80.0-94.0); MEAN PLATELET VOLUME 8.1 fl (7.4-10.4); PLATELET 181 x1000/uL (130-400); RED BLOOD CELL COUNT 3.41 mill/uL (4.7-6.1); RED CELL DISTRIBUTION WIDTH 15.9 % (11.6-14.6)
[2020-09-15 09:48] LABS: INR 1.2; PROTHROMBIN TIME 12.7 sec (9.6-11.0)
[2020-09-15 09:49] LABS: CHLORIDE 109 mEq/L (98-107)
[2020-09-15 10:21] LABS: PLATELET ESTIMATE NORMAL
[2020-09-15] MEDS ORDERED: SODIUM CHLORIDE 0.9% 1,000 ML IV NR (10:30)
[2020-09-15] MEDS ORDERED: VANCOMYCIN 1 G PREMIX 200 ML IV NR (10:30)
[2020-09-15] MEDS ORDERED: PIPERACILLIN/TAZOBACTAM 3.375GM/50ML PREMIX IV ONE (10:30)
[2020-09-15] MEDS ORDERED: PIPERACILLIN/TAZ 3.375G PREMIX 50 ML IV NR (10:45)
[2020-09-15 12:00] VITALS: BP 135/78
[2020-09-15 12:35] LABS: KETONES URINE NEGATIVE (NEGATIVE); LEUKOCYTE ESTERASE URINE NEGATIVE (NEGATIVE); NITRITE URINE NEGATIVE (NEGATIVE); OCCULT BLOOD URINE 3+ (NEGATIVE); PROTEIN URINE 2+ (NEGATIVE); SPECIFIC GRAVITY URINE 1.005 (1.005-1.030); UROBILINOGEN URINE 0.2 E.U./dL (0.2-1.0)
[2020-09-15 12:36] LABS: CLARITY URINE CLOUDY (CLEAR); COLOR URINE BLOODY (YELLOW)
[2020-09-15] MEDS ORDERED: DOCUSATE SODIUM 100MG CAPSULE PO PRN (13:15)
[2020-09-15] MEDS ORDERED: SODIUM CHLORIDE 0.9% 1000ML BAG (SEPSIS BOLUS) IV ONE (13:15)
[2020-09-15] MEDS ORDERED: NA PHOS,M-B/NA PHOS,DI-BA ENEMA 118ML PR PRN (13:15)
[2020-09-15] MEDS ORDERED: GUAIFENESIN 200MG/10ML SUGAR FREE UDC PO PRN (13:15)
[2020-09-15] MEDS ORDERED: IPRATROPIUM/ALBUTEROL 0.5-3(2.5)MG/3ML NEB NEB PRN (13:15)
[2020-09-15] MEDS ORDERED: CLONIDINE 0.1MG TABLET PO PRN (13:15)
[2020-09-15] MEDS ORDERED: MAGNESIUM/ALUMINUM HYDROXIDE/SIMETHICONE 30ML UDC PO PRN (13:15)
[2020-09-15] MEDS ORDERED: ACETAMINOPHEN 325MG TABLET PO PRN (13:15)
[2020-09-15] MEDS ORDERED: NITROGLYCERIN 0.4MG TABLET SL SL PRN (13:15)
[2020-09-15] MEDS ORDERED: ONDANSETRON HCL 4MG/2ML INJ IV PRN (13:15)
[2020-09-15] MEDS ORDERED: ENOXAPARIN 40MG/0.4ML SYR SUBCUT SCH (13:15)
[2020-09-15] MEDS ORDERED: SODIUM CHLORIDE 0.9% 2,200 ML IV SCH (13:30)
[2020-09-15] MEDS ORDERED: VANCOMYCIN 500 MG PREMIX 100 ML IV NR (13:30)
[2020-09-15 14:39] VITALS: BP 106/73
[2020-09-15 14:40] VITALS: BP 106/73
[2020-09-15] MEDS ORDERED: PIPERACILLIN/TAZ 3.375G PREMIX 50 ML IV SCH (16:00)
[2020-09-15 16:23] LABS: CREATINE KINASE 81 IU/L (39-308)
[2020-09-15 16:25] LABS: CREATINE KINASE MB FRACTION 1.5 ng/mL (0.5-3.6)
[2020-09-15 16:54] LABS: FOLIC ACID (FOLATE) SERUM 11.7 ng/mL (>5.38)
[2020-09-15] MEDS: ENOXAPARIN 30MG/0.3ML SYR SUBCUT SCH (18:54)
[2020-09-15] MEDS ORDERED: POTASSIUM CHLORIDE 20MEQ/PACKET PO NR (19:00)
[2020-09-15 20:00] VITALS: BP 87/46
[2020-09-15] MEDS: ASCORBIC ACID 500 MG TABLET PO SCH (21:08)
[2020-09-15] MEDS: PIPERACILLIN/TAZOBACTAM 2.25 G in DEXTROSE 5% WATER 50 ML IV SCH (21:08)
[2020-09-15] MEDS: FAMOTIDINE 20MG TABLET PO SCH (21:10)
[2020-09-15] MEDS ORDERED: SODIUM CHLORIDE 0.9% 1,000 ML IV ONE (22:30)
[2020-09-15] MEDS ORDERED: ALBUMIN HUMAN 25GM/100ML (25%) IV NR (23:00)
[2020-09-15 23:47] LABS: CREATINE KINASE MB FRACTION 3.6 ng/mL (0.5-3.6)
[2020-09-16] VITALS: BP 80/59
[2020-09-16] MEDS: PIPERACILLIN/TAZOBACTAM 2.25 G in DEXTROSE 5% WATER 50 ML IV SCH ×2 (02:07→09:34)
[2020-09-16 04:00] VITALS: BP 91/56
[2020-09-16] MEDS ORDERED: VANCOMYCIN 750 MG PREMIX 150 ML IV SCH ×2 (06:00→12:00)
[2020-09-16 06:28] LABS: HEMATOCRIT. 22.4 % (42.0-52.0); HEMOGLOBIN. 7.2 g/dL (14.0-18.0); MEAN CORPUSCULAR HEMOGLOBIN 28.1 pg (28.0-32.0); MEAN CORPUSCULAR VOLUME 87.9 fL (80.0-94.0); MEAN PLATELET VOLUME 9.5 fl (7.4-10.4); PLATELET 116 x1000/uL (130-400); RED BLOOD CELL COUNT 2.55 mill/uL (4.7-6.1); RED CELL DISTRIBUTION WIDTH 15.9 % (11.6-14.6)
[2020-09-16 06:44] LABS: CHLORIDE 110 mEq/L (98-107)
[2020-09-16 06:53] LABS: PHOSPHORUS 5.2 mg/dL (2.5-4.9)
[2020-09-16 08:01] VITALS: BP 92/57
[2020-09-16] MEDS: ASCORBIC ACID 500 MG TABLET PO SCH ×2 (09:33→20:37)
[2020-09-16] MEDS: ASPIRIN 325MG EC TABLET PO SCH (09:33)
[2020-09-16] MEDS: CHOLECALCIFEROL (D3) 1000 UNIT TABLET PO SCH (09:33)
[2020-09-16] MEDS: ZINC SULFATE 220 MG ( 50 ) CAPSULE PO SCH (09:33)
[2020-09-16] MEDS ORDERED: MEROPENEM 1,000 MG in SODIUM CHLORIDE 0.9% 100 ML IV SCH (09:45)
[2020-09-16] MEDS: SODIUM CHLORIDE 0.9% 1,000 ML IV SCH ×2 (11:48→20:36)
[2020-09-16 11:49] VITALS: BP 99/63
[2020-09-16] MEDS: MEROPENEM 1000MG in NORMAL SALINE 100ML IV SCH ×2 (11:49→20:36)
[2020-09-16] MEDS ORDERED: VANCOMYCIN 750 MG PREMIX 150 ML IV NR (12:00)
[2020-09-16] MEDS: ENOXAPARIN 30MG/0.3ML SYR SUBCUT SCH (13:50)
[2020-09-16 15:50] VITALS: BP 94/61
[2020-09-16 20:00] VITALS: BP 96/58
[2020-09-16] MEDS: FAMOTIDINE 20MG TABLET PO SCH (20:37)
[2020-09-16 23:57] LABS: PLATELET ESTIMATE DECREASED
[2020-09-17] VITALS: BP 105/67
[2020-09-17 04:00] VITALS: BP 122/74
[2020-09-17] MEDS: SODIUM CHLORIDE 0.9% 1,000 ML IV SCH ×2 (06:12→15:16)
[2020-09-17 08:00] VITALS: BP 151/86
[2020-09-17] MEDS: ASCORBIC ACID 500 MG TABLET PO SCH ×2 (08:01→21:03)
[2020-09-17] MEDS: MEROPENEM 1000MG in NORMAL SALINE 100ML IV SCH ×2 (08:01→21:02)
[2020-09-17] MEDS: ZINC SULFATE 220 MG ( 50 ) CAPSULE PO SCH (08:01)
[2020-09-17] MEDS: CHOLECALCIFEROL (D3) 1000 UNIT TABLET PO SCH (08:01)
[2020-09-17] MEDS: ASPIRIN 325MG EC TABLET PO SCH (08:01)
[2020-09-17 08:03] LABS: CHLORIDE 112 mEq/L (98-107)
[2020-09-17 08:08] LABS: BASOPHILS % 0.4 % (0.0-2.0); HEMATOCRIT. 25.8 % (42.0-52.0); HEMOGLOBIN. 8.3 g/dL (14.0-18.0); LYMPHOCYTES % 7.9 % (20.0-50.0); MEAN CORPUSCULAR HEMOGLOBIN 28.2 pg (28.0-32.0); MEAN CORPUSCULAR VOLUME 87.5 fL (80.0-94.0); MEAN PLATELET VOLUME 10.3 fl (7.4-10.4); NEUTROPHILS % 87.7 % (40.0-76.0); PHOSPHORUS 2.6 mg/dL (2.5-4.9); PLATELET 115 x1000/uL (130-400); RED BLOOD CELL COUNT 2.95 mill/uL (4.7-6.1); RED CELL DISTRIBUTION WIDTH 16.2 % (11.6-14.6)
[2020-09-17 12:00] VITALS: BP 153/82
[2020-09-17] MEDS: ENOXAPARIN 30MG/0.3ML SYR SUBCUT SCH (13:31)
[2020-09-17] MEDS ORDERED: VANCOMYCIN 1 G PREMIX 200 ML IV SCH (14:00)
[2020-09-17 16:00] VITALS: BP 118/79
[2020-09-17 20:00] VITALS: BP 138/59
[2020-09-17] MEDS: FAMOTIDINE 20MG TABLET PO SCH (21:03)
[2020-09-17] MEDS: TRAMADOL 50MG TABLET PO PRN (22:08)
[2020-09-18] VITALS: BP 156/76
[2020-09-18] MEDS: ZOLPIDEM TARTRATE 5MG TABLET PO PRN (00:45)
[2020-09-18] MEDS: SODIUM CHLORIDE 0.9% 1,000 ML IV SCH ×3 (02:46→20:47)
[2020-09-18 04:00] VITALS: BP 160/80
[2020-09-18 06:25] LABS: BASOPHILS % 0.7 % (0.0-2.0); EOSINOPHILS % 0.3 % (0.0-5.0); HEMATOCRIT. 27.9 % (42.0-52.0); HEMOGLOBIN. 8.9 g/dL (14.0-18.0); LYMPHOCYTES % 7.7 % (20.0-50.0); MEAN CORPUSCULAR VOLUME 87.8 fL (80.0-94.0); MEAN PLATELET VOLUME 10.6 fl (7.4-10.4); MONOCYTES % 2.6 % (2.0-8.0); NEUTROPHILS % 88.7 % (40.0-76.0); PLATELET 118 x1000/uL (130-400); RED BLOOD CELL COUNT 3.18 mill/uL (4.7-6.1)
[2020-09-18 06:30] LABS: CHLORIDE 115 mEq/L (98-107)
[2020-09-18 06:41] LABS: PHOSPHORUS 2.2 mg/dL (2.5-4.9)
[2020-09-18 07:53] VITALS: BP 124/82
[2020-09-18] MEDS: ZINC SULFATE 220 MG ( 50 ) CAPSULE PO SCH (08:15)
[2020-09-18] MEDS: ASCORBIC ACID 500 MG TABLET PO SCH ×2 (08:16→20:40)
[2020-09-18] MEDS: MEROPENEM 1000MG in NORMAL SALINE 100ML IV SCH ×2 (08:16→20:40)
[2020-09-18] MEDS: CHOLECALCIFEROL (D3) 1000 UNIT TABLET PO SCH (08:16)
[2020-09-18] MEDS: ASPIRIN 325MG EC TABLET PO SCH (08:16)
[2020-09-18] MEDS ORDERED: POTASSIUM PHOS,M-BASIC-D-BASIC 15 MMOL in DEXT 5% WATER 245 ML IV SCH (11:00)
[2020-09-18 12:00] VITALS: BP 137/74
[2020-09-18] MEDS: ENOXAPARIN 30MG/0.3ML SYR SUBCUT SCH (13:58)
[2020-09-18] MEDS: VANCOMYCIN 1 G PREMIX 200 ML IV SCH (13:58)
[2020-09-18 16:00] VITALS: BP 156/72
[2020-09-18 20:00] VITALS: BP 128/71
[2020-09-18] MEDS: FAMOTIDINE 20MG TABLET PO SCH (20:40)
[2020-09-19] VITALS: BP_SYST 141; BP_SYST 95; BP_DIAS 48; BP_DIAS 79
[2020-09-19] MEDS: VANCOMYCIN 1 G PREMIX 200 ML IV SCH (03:30)
[2020-09-19 04:00] VITALS: BP_SYST 135; BP_SYST 137; BP_DIAS 67; BP_DIAS 74
[2020-09-19] MEDS: TRAMADOL 50MG TABLET PO PRN ×3 (05:18→21:13)
[2020-09-19 07:54] LABS: CHLORIDE 114 mEq/L (98-107)
[2020-09-19 08:00] VITALS: BP 146/93
[2020-09-19] MEDS: MEROPENEM 1000MG in NORMAL SALINE 100ML IV SCH (09:03)
[2020-09-19] MEDS: ZINC SULFATE 220 MG ( 50 ) CAPSULE PO SCH (09:03)
[2020-09-19] MEDS: ASCORBIC ACID 500 MG TABLET PO SCH ×2 (09:03→21:14)
[2020-09-19] MEDS: ASPIRIN 325MG EC TABLET PO SCH (09:03)
[2020-09-19] MEDS: CHOLECALCIFEROL (D3) 1000 UNIT TABLET PO SCH (09:03)
[2020-09-19] MEDS: ENOXAPARIN 40MG/0.4ML SYR SUBCUT SCH (09:03)
[2020-09-19] MEDS: SODIUM CHLORIDE 0.9% 1,000 ML IV SCH ×2 (09:04→18:15)
[2020-09-19] MEDS ORDERED: CEFTRIAXONE 1,000 MG in DEXTROSE 5% WATER 50 ML IV SCH (09:30)
[2020-09-19] MEDS ORDERED: CEFTRIAXONE 1 G PREMIX 50 ML IV SCH (10:00)
[2020-09-19] MEDS: CEFTRIAXONE 1,000 MG in DEXTROSE 5% WATER 50 ML IV SCH (11:20)
[2020-09-19 12:05] VITALS: BP 129/81
[2020-09-19 16:34] VITALS: BP 127/83
[2020-09-19 20:00] VITALS: BP 124/82
[2020-09-19] MEDS: ZOLPIDEM TARTRATE 5MG TABLET PO PRN (21:14)
[2020-09-19] MEDS: FAMOTIDINE 20MG TABLET PO SCH (21:14)
[2020-09-20] VITALS: BP 136/75
[2020-09-20 04:00] VITALS: BP 125/72
[2020-09-20] MEDS: ENOXAPARIN 40MG/0.4ML SYR SUBCUT SCH (08:19)
[2020-09-20] MEDS: ASCORBIC ACID 500 MG TABLET PO SCH ×2 (08:19→21:40)
[2020-09-20] MEDS: ASPIRIN 325MG EC TABLET PO SCH (08:19)
[2020-09-20] MEDS: CHOLECALCIFEROL (D3) 1000 UNIT TABLET PO SCH (08:20)
[2020-09-20] MEDS: ZINC SULFATE 220 MG ( 50 ) CAPSULE PO SCH (08:20)
[2020-09-20 08:21] VITALS: BP 146/82
[2020-09-20 09:29] LABS: CHLORIDE 114 mEq/L (98-107)
[2020-09-20 09:34] LABS: HEMOGLOBIN. 8.6 g/dL (14.0-18.0); MEAN CORPUSCULAR HEMOGLOBIN 28.9 pg (28.0-32.0); MEAN CORPUSCULAR VOLUME 87.8 fL (80.0-94.0); MEAN PLATELET VOLUME 9.8 fl (7.4-10.4); PLATELET 151 x1000/uL (130-400); RED BLOOD CELL COUNT 2.96 mill/uL (4.7-6.1); RED CELL DISTRIBUTION WIDTH 16.1 % (11.6-14.6)
[2020-09-20 09:35] LABS: PHOSPHORUS 2.1 mg/dL (2.5-4.9)
[2020-09-20] MEDS: CEFTRIAXONE 1,000 MG in DEXTROSE 5% WATER 50 ML IV SCH (11:19)
[2020-09-20] MEDS: TRAMADOL 50MG TABLET PO PRN (11:36)
[2020-09-20 12:37] VITALS: BP 144/83
[2020-09-20] MEDS ORDERED: POTASSIUM CHLORIDE INJ 40 MEQ in DEXT 5% WATER 250 ML IV SCH (13:00)
[2020-09-20] MEDS ORDERED: POTASSIUM PHOS,M-BASIC-D-BASIC 15 MMOL in DEXT 5% WATER 250 ML IV SCH (13:00)
[2020-09-20] MEDS: SODIUM CHLORIDE 0.9% 1,000 ML IV SCH ×2 (15:33→23:53)
[2020-09-20 16:18] VITALS: BP 154/80
[2020-09-20] MEDS: ACETAMINOPHEN 325MG TABLET PO PRN (18:11)
[2020-09-20 18:21] LABS: NUCLEATED RED BLOOD CELLS 6 /100 WBC; PLATELET ESTIMATE NORMAL
[2020-09-20 20:00] VITALS: BP 142/83
[2020-09-20] MEDS: FAMOTIDINE 20MG TABLET PO SCH (21:40)
[2020-09-20] MEDS: ZOLPIDEM TARTRATE 5MG TABLET PO PRN (22:12)
[2020-09-21] VITALS (7 sets, daily range): BP systolic 133–150; BP diastolic 72–86
[2020-09-21 07:00] LABS: BASOPHILS % 0.8 % (0.0-2.0); EOSINOPHILS % 1.9 % (0.0-5.0); HEMATOCRIT. 23.9 % (42.0-52.0); HEMOGLOBIN. 7.9 g/dL (14.0-18.0); LYMPHOCYTES % 19.5 % (20.0-50.0); MEAN CORPUSCULAR VOLUME 87.7 fL (80.0-94.0); MEAN PLATELET VOLUME 10.2 fl (7.4-10.4); MONOCYTES % 6.5 % (2.0-8.0); NEUTROPHILS % 71.3 % (40.0-76.0); PLATELET 203 x1000/uL (130-400); RED BLOOD CELL COUNT 2.73 mill/uL (4.7-6.1)
[2020-09-21 07:24] LABS: CHLORIDE 114 mEq/L (98-107)
[2020-09-21 07:36] LABS: PHOSPHORUS 2.7 mg/dL (2.5-4.9)
[2020-09-21] MEDS: CHOLECALCIFEROL (D3) 1000 UNIT TABLET PO SCH (08:48)
[2020-09-21] MEDS: ASPIRIN 325MG EC TABLET PO SCH (08:48)
[2020-09-21] MEDS: ZINC SULFATE 220 MG ( 50 ) CAPSULE PO SCH (08:48)
[2020-09-21] MEDS: ENOXAPARIN 40MG/0.4ML SYR SUBCUT SCH (08:49)
[2020-09-21] MEDS: ASCORBIC ACID 500 MG TABLET PO SCH ×2 (08:49→21:02)
[2020-09-21] MEDS: CEFTRIAXONE 1,000 MG in DEXTROSE 5% WATER 50 ML IV SCH (13:11)
[2020-09-21] MEDS: ACETAMINOPHEN 325MG TABLET PO PRN ×3 (17:22→17:46)
[2020-09-21] MEDS: FAMOTIDINE 20MG TABLET PO SCH (21:02)
[2020-09-21] MEDS ORDERED: LEVO500T89 PO (22:11)
[2020-09-21] MEDS ORDERED: ZINC220T4 PO (22:13)
[2020-09-21] MEDS ORDERED: ASCO500C18 PO (22:14)
== END 2020-09-21 22:55 | DRG 871 ==
LOC: ER 08:25 → 6WST 11:19 → EDBEDREQSVC 11:21 → EDBEDREQ 11:21 → SUPCPDRO 13:02 → ENRESERV 13:08
PROVIDERS: ADMIT Internal Medicine; ATTEND Internal Medicine
DX: A41.59 Other Gram-negative sepsis (principal); E43 Unspecified severe protein-calorie malnutrition; N17.0 Acute kidney failure with tubular necrosis; J18.9 Pneumonia, unspecified organism; D62 Acute posthemorrhagic anemia; N13.8 Other obstructive and reflux uropathy; N39.0 Urinary tract infection, site not specified; E87.2 Acidosis; D69.6 Thrombocytopenia, unspecified; I48.91 Unspecified atrial fibrillation; R65.20 Severe sepsis without septic shock; R31.9 Hematuria, unspecified; E87.6 Hypokalemia; I10 Essential (primary) hypertension; N40.1 Benign prostatic hyperplasia with lower urinary tract symptoms; D63.8 Anemia in other chronic diseases classified elsewhere; E83.51 Hypocalcemia; Z86.73 Personal history of transient ischemic attack (TIA), and cerebral infarction without residual deficits; Z68.22 Body mass index [BMI] 22.0-22.9, adult; Z82.49 Family history of ischemic heart disease and other diseases of the circulatory system; Z79.82 Long term (current) use of aspirin; Z79.899 Other long term (current) drug therapy; Z96.0 Presence of urogenital implants
CPT/HCPCS: 36415; 71045; 74176; 80048; 80053; 80061; 80202; 81003; 82550; 82553; 82607; 82746; 83036; 83540; 83550; 83605; 83735; 84100; 84145; 84153; 84484; 85025; 86850; 86900; 86920; 87077; 87186; 93005; 93970; 97162; 97166; 99285; 99291; J0696; J1650; J2185; J2543; J3370; J3480; J3490; J7030; J7040; J7060; P9047; A4315; G0103

== ENCOUNTER 2021-06-05 13:20 | Inpatient (IN) | payer MEDICARE, MEDICAID ==
[~2021-06-05] VITALS: Ht 180.3 cm; Wt 68.7 kg
[~2021-06-05 13:20] MED LIST changes: +ASCO500C18 PO; +LEVO500T89 PO; +ZINC220T4 PO
[2021-06-05] MEDS: ENALAPRIL 2.5MG/2ML VIAL 2ML IV ONE ×2 (14:00→15:00)
[2021-06-05 14:26] LABS: BASOPHILS % 0.8 % (0.0-2.0); EOSINOPHILS % 0.7 % (0.0-5.0); HEMATOCRIT. 38.5 % (42.0-52.0); HEMOGLOBIN. 12.7 g/dL (14.0-18.0); LYMPHOCYTES % 26.3 % (20.0-50.0); MEAN CORPUSCULAR HEMOGLOBIN 28.7 pg (28.0-32.0); MEAN CORPUSCULAR VOLUME 87.1 fL (80.0-94.0); MEAN PLATELET VOLUME 9.7 fl (7.4-10.4); NEUTROPHILS % 64.2 % (40.0-76.0); PLATELET 381 x1000/uL (130-400); RED BLOOD CELL COUNT 4.42 mill/uL (4.7-6.1)
[2021-06-05 14:30] LABS: CHLORIDE 105 mEq/L (98-107)
[2021-06-05 14:35] LABS: ETHANOL BLOOD < 10 mg/dL
[2021-06-05] MEDS ORDERED: POTASSIUM CHLORIDE 20MEQ TABLET SR PO SCH (15:00)
[2021-06-05] MEDS ORDERED: MAGNESIUM/ALUMINUM HYDROXIDE/SIMETHICONE 30ML UDC PO PRN (15:00)
[2021-06-05] MEDS ORDERED: ONDANSETRON HCL 4MG/2ML INJ IV PRN (15:00)
[2021-06-05] MEDS ORDERED: NITROGLYCERIN 0.4MG TABLET SL SL PRN (15:00)
[2021-06-05] MEDS ORDERED: IPRATROPIUM/ALBUTEROL 0.5-3(2.5)MG/3ML NEB NEB PRN (15:00)
[2021-06-05] MEDS ORDERED: ACETAMINOPHEN 325MG TABLET PO PRN (15:00)
[2021-06-05] MEDS ORDERED: POTASSIUM CHLORIDE 20MEQ TABLET SR PO ONE (15:00)
[2021-06-05] MEDS ORDERED: GUAIFENESIN 200MG/10ML SUGAR FREE UDC PO PRN (15:00)
[2021-06-05 15:58] LABS: TOTAL IRON BINDING CAPACITY 168 ug/dL (250-450)
[2021-06-05] MEDS ORDERED: KCL 20MEQ/100ML PREMIX 100 ML IV SCH (16:00)
[2021-06-05 16:09] LABS: FOLIC ACID (FOLATE) SERUM 18.2 ng/mL (>5.38)
[2021-06-05] MEDS: DOCUSATE SODIUM 100MG CAPSULE PO PRN (16:14)
[2021-06-05] MEDS: CLONIDINE 0.1MG TABLET PO PRN (16:14)
[2021-06-05] MEDS: ENOXAPARIN 40MG/0.4ML SYR SUBCUT SCH (16:16)
[2021-06-05] MEDS: LISINOPRIL 20MG TABLET PO SCH (17:50)
[2021-06-05] MEDS: CHOLECALCIFEROL (D3) 1000 UNIT TABLET PO SCH (18:08)
[2021-06-05] MEDS: ZINC SULFATE 220 MG ( 50 ) CAPSULE PO SCH (18:08)
[2021-06-05 18:22] LABS: CLARITY URINE CLOUDY (CLEAR); COLOR URINE DARK YELLOW (YELLOW); KETONES URINE NEGATIVE (NEGATIVE); LEUKOCYTE ESTERASE URINE 1+ (NEGATIVE); NITRITE URINE NEGATIVE (NEGATIVE); OCCULT BLOOD URINE NEGATIVE (NEGATIVE); PH URINE 5.5 (4.5-8.0); PROTEIN URINE 2+ (NEGATIVE); SPECIFIC GRAVITY URINE 1.022 (1.005-1.030)
[2021-06-05 18:32] LABS: *AMPHETAMINES SCREEN URINE NEGATIVE (NEGATIVE); *BARBITURATES SCREEN URINE NEGATIVE (NEGATIVE); *BENZODIAZEPINES SCREEN URINE NEGATIVE (NEGATIVE); *COCAINE SCREEN URINE NEGATIVE (NEGATIVE)
[2021-06-05 18:33] LABS: CANNABINOID URINE SCREEN NEGATIVE (NEGATIVE); METHADONE URINE SCREEN NEGATIVE (NEGATIVE); OPIATES URINE SCREEN NEGATIVE (NEGATIVE); PHENCYCLIDINE URINE SCREEN NEGATIVE (NEGATIVE)
[2021-06-05] MEDS: ASCORBIC ACID 500 MG TABLET PO SCH (22:24)
[2021-06-05] MEDS: FAMOTIDINE 20MG TABLET PO SCH (22:24)
[2021-06-05] MEDS: ACETAMINOPHEN 325MG TABLET PO PRN (22:25)
[2021-06-05 23:00] VITALS: BP 156/93
[2021-06-06] VITALS (8 sets, daily range): BP systolic 130–175; BP diastolic 80–95
[2021-06-06 00:19] LABS: CREATINE KINASE 32 IU/L (39-308); CREATINE KINASE MB FRACTION < 1.0 ng/mL (0.5-3.6)
[2021-06-06] MEDS: ACETAMINOPHEN 325MG TABLET PO PRN ×2 (02:55→18:07)
[2021-06-06 07:52] LABS: CHLORIDE 108 mEq/L (98-107)
[2021-06-06 07:55] LABS: BASOPHILS % 1.1 % (0.0-2.0); EOSINOPHILS % 1.5 % (0.0-5.0); HEMATOCRIT. 36.9 % (42.0-52.0); HEMOGLOBIN. 12.1 g/dL (14.0-18.0); LYMPHOCYTES % 33.3 % (20.0-50.0); MEAN CORPUSCULAR HEMOGLOBIN 28.4 pg (28.0-32.0); MEAN CORPUSCULAR VOLUME 86.8 fL (80.0-94.0); MEAN PLATELET VOLUME 9.3 fl (7.4-10.4); MONOCYTES % 7.4 % (2.0-8.0); NEUTROPHILS % 56.7 % (40.0-76.0); PLATELET 333 x1000/uL (130-400); RED BLOOD CELL COUNT 4.25 mill/uL (4.7-6.1); RED CELL DISTRIBUTION WIDTH 16.6 % (11.6-14.6)
[2021-06-06 07:58] LABS: PHOSPHORUS 2.5 mg/dL (2.5-4.9)
[2021-06-06 07:59] LABS: CREATINE KINASE 27 IU/L (39-308)
[2021-06-06 08:04] LABS: CREATINE KINASE MB FRACTION < 1.0 ng/mL (0.5-3.6)
[2021-06-06] MEDS: CHOLECALCIFEROL (D3) 1000 UNIT TABLET PO SCH (08:47)
[2021-06-06] MEDS: ZINC SULFATE 220 MG ( 50 ) CAPSULE PO SCH (08:48)
[2021-06-06] MEDS: FAMOTIDINE 20MG TABLET PO SCH ×2 (08:48→20:26)
[2021-06-06] MEDS: ASPIRIN 325MG EC TABLET PO SCH (08:48)
[2021-06-06] MEDS: ASCORBIC ACID 500 MG TABLET PO SCH ×2 (08:48→20:25)
[2021-06-06] MEDS: LISINOPRIL 20MG TABLET PO SCH ×2 (08:48→20:26)
[2021-06-06] MEDS ORDERED: LACT10SO6 MT (09:39)
[2021-06-06] MEDS ORDERED: FINA5TAB11 PO (09:39)
[2021-06-06] MEDS ORDERED: DIPH25CA83 MT (09:39)
[2021-06-06] MEDS: ENOXAPARIN 40MG/0.4ML SYR SUBCUT SCH (14:52)
[2021-06-06] MEDS: TRAMADOL 50MG TABLET PO PRN (21:28)
[2021-06-06] MEDS: CLONIDINE 0.1MG TABLET PO PRN (23:22)
[2021-06-07 04:00] VITALS: BP 179/98
[2021-06-07] MEDS: CLONIDINE 0.1MG TABLET PO PRN ×2 (04:47→16:38)
[2021-06-07] MEDS: TRAMADOL 50MG TABLET PO PRN (04:47)
[2021-06-07 08:00] VITALS: BP 173/98
[2021-06-07] MEDS: ZINC SULFATE 220 MG ( 50 ) CAPSULE PO SCH (09:04)
[2021-06-07] MEDS: ASCORBIC ACID 500 MG TABLET PO SCH ×2 (09:04→20:25)
[2021-06-07] MEDS: ASPIRIN 325MG EC TABLET PO SCH (09:04)
[2021-06-07] MEDS: CHOLECALCIFEROL (D3) 1000 UNIT TABLET PO SCH (09:04)
[2021-06-07] MEDS: LISINOPRIL 20MG TABLET PO SCH ×2 (09:05→20:24)
[2021-06-07] MEDS: FAMOTIDINE 20MG TABLET PO SCH ×2 (09:06→20:25)
[2021-06-07 12:00] VITALS: BP 160/98
[2021-06-07 16:00] VITALS: BP 177/110
[2021-06-07] MEDS: ENOXAPARIN 40MG/0.4ML SYR SUBCUT SCH (16:38)
[2021-06-07 20:00] VITALS: BP 143/89
[2021-06-07] MEDS: ZOLPIDEM TARTRATE 5MG TABLET PO PRN (20:34)
[2021-06-08] VITALS: BP 155/86
[2021-06-08] MEDS: CLONIDINE 0.1MG TABLET PO PRN ×4 (03:55→20:06)
[2021-06-08 04:00] VITALS: BP 188/107
[2021-06-08 08:00] VITALS: BP 170/97
[2021-06-08] MEDS: ASCORBIC ACID 500 MG TABLET PO SCH ×2 (08:57→20:06)
[2021-06-08] MEDS: ASPIRIN 325MG EC TABLET PO SCH (08:57)
[2021-06-08] MEDS: ZINC SULFATE 220 MG ( 50 ) CAPSULE PO SCH (08:57)
[2021-06-08] MEDS: FAMOTIDINE 20MG TABLET PO SCH ×2 (08:57→20:06)
[2021-06-08] MEDS: LISINOPRIL 20MG TABLET PO SCH ×2 (08:58→20:06)
[2021-06-08] MEDS: CHOLECALCIFEROL (D3) 1000 UNIT TABLET PO SCH (08:58)
[2021-06-08 12:00] VITALS: BP 175/87
[2021-06-08] MEDS: ENOXAPARIN 40MG/0.4ML SYR SUBCUT SCH (14:13)
[2021-06-08 16:00] VITALS: BP 174/99
[2021-06-08] MEDS: DOCUSATE SODIUM 100MG CAPSULE PO PRN (18:05)
[2021-06-08 20:00] VITALS: BP 167/87
[2021-06-08] MEDS: ZOLPIDEM TARTRATE 5MG TABLET PO PRN (20:06)
[2021-06-08] MEDS: TRAMADOL 50MG TABLET PO PRN (20:06)
[2021-06-09] VITALS: BP 173/89
[2021-06-09 04:00] VITALS: BP 163/92
[2021-06-09] MEDS: TRAMADOL 50MG TABLET PO PRN ×2 (04:48→21:24)
[2021-06-09] MEDS: CLONIDINE 0.1MG TABLET PO PRN (04:49)
[2021-06-09 08:00] VITALS: BP 151/82
[2021-06-09] MEDS: CHOLECALCIFEROL (D3) 1000 UNIT TABLET PO SCH (09:01)
[2021-06-09] MEDS: ZINC SULFATE 220 MG ( 50 ) CAPSULE PO SCH (09:01)
[2021-06-09] MEDS: FUROSEMIDE 20MG TABLET PO SCH (09:01)
[2021-06-09] MEDS: ASCORBIC ACID 500 MG TABLET PO SCH ×2 (09:01→21:24)
[2021-06-09] MEDS: LISINOPRIL 20MG TABLET PO SCH ×2 (09:02→21:25)
[2021-06-09] MEDS: FAMOTIDINE 20MG TABLET PO SCH ×2 (09:02→21:24)
[2021-06-09] MEDS: HYDRALAZINE HCL 50MG TABLET PO SCH ×3 (09:02→21:25)
[2021-06-09] MEDS: SPIRONOLACTONE 25MG TABLET PO SCH (09:03)
[2021-06-09] MEDS: ASPIRIN 325MG EC TABLET PO SCH (09:03)
[2021-06-09] MEDS: DOCUSATE SODIUM 100MG CAPSULE PO PRN ×2 (09:04→18:01)
[2021-06-09] MEDS: ISOSORBIDE MONONITRATE 30MG TABLET SR 24HR PO SCH (09:09)
[2021-06-09 12:00] VITALS: BP 127/84
[2021-06-09] MEDS: ACETAMINOPHEN 325MG TABLET PO PRN ×2 (14:09→18:01)
[2021-06-09] MEDS: ENOXAPARIN 40MG/0.4ML SYR SUBCUT SCH (14:12)
[2021-06-09 16:00] VITALS: BP 140/96
[2021-06-09 20:00] VITALS: BP 174/100
[2021-06-09] MEDS: ZOLPIDEM TARTRATE 5MG TABLET PO PRN (21:24)
[2021-06-10] VITALS (7 sets, daily range): BP systolic 118–185; BP diastolic 67–104
[2021-06-10] MEDS: ACETAMINOPHEN 325MG TABLET PO PRN ×2 (03:22→18:37)
[2021-06-10] MEDS: HYDRALAZINE HCL 50MG TABLET PO SCH ×3 (04:31→20:39)
[2021-06-10] MEDS: CLONIDINE 0.1MG TABLET PO PRN ×3 (04:32→22:28)
[2021-06-10] MEDS: ASPIRIN 325MG EC TABLET PO SCH (09:16)
[2021-06-10] MEDS: DOCUSATE SODIUM 100MG CAPSULE PO PRN (09:16)
[2021-06-10] MEDS: TRAMADOL 50MG TABLET PO PRN (09:17)
[2021-06-10] MEDS: CHOLECALCIFEROL (D3) 1000 UNIT TABLET PO SCH (09:17)
[2021-06-10] MEDS: ZINC SULFATE 220 MG ( 50 ) CAPSULE PO SCH (09:17)
[2021-06-10] MEDS: SPIRONOLACTONE 25MG TABLET PO SCH (09:18)
[2021-06-10] MEDS: LISINOPRIL 20MG TABLET PO SCH ×2 (09:18→20:39)
[2021-06-10] MEDS: ASCORBIC ACID 500 MG TABLET PO SCH ×2 (09:18→20:39)
[2021-06-10] MEDS: ISOSORBIDE MONONITRATE 30MG TABLET SR 24HR PO SCH (09:19)
[2021-06-10] MEDS: FAMOTIDINE 20MG TABLET PO SCH ×2 (09:20→20:39)
[2021-06-10] MEDS: FUROSEMIDE 20MG TABLET PO SCH (09:25)
[2021-06-10] MEDS: ENOXAPARIN 40MG/0.4ML SYR SUBCUT SCH (15:00)
[2021-06-10] MEDS ORDERED: ZOLPIDEM TARTRATE 5MG TABLET PO NR (21:00)
[2021-06-11] VITALS: BP 180/101
[2021-06-11 04:00] VITALS: BP 148/89
[2021-06-11] MEDS: ACETAMINOPHEN 325MG TABLET PO PRN (04:55)
[2021-06-11] MEDS: HYDRALAZINE HCL 50MG TABLET PO SCH (04:55)
[2021-06-11] MEDS: CLONIDINE 0.1MG TABLET PO PRN (04:56)
[2021-06-11 08:00] VITALS: BP 151/98
[2021-06-11] MEDS: CHOLECALCIFEROL (D3) 1000 UNIT TABLET PO SCH (08:07)
[2021-06-11] MEDS: ZINC SULFATE 220 MG ( 50 ) CAPSULE PO SCH (08:07)
[2021-06-11] MEDS: SPIRONOLACTONE 25MG TABLET PO SCH (08:07)
[2021-06-11] MEDS: ASPIRIN 325MG EC TABLET PO SCH (08:07)
[2021-06-11] MEDS: ISOSORBIDE MONONITRATE 30MG TABLET SR 24HR PO SCH (08:07)
[2021-06-11] MEDS: FUROSEMIDE 20MG TABLET PO SCH (08:08)
[2021-06-11] MEDS: FAMOTIDINE 20MG TABLET PO SCH (08:08)
[2021-06-11] MEDS: LISINOPRIL 20MG TABLET PO SCH (08:08)
[2021-06-11] MEDS: ASCORBIC ACID 500 MG TABLET PO SCH (08:08)
== END 2021-06-11 09:50 | DRG 205 ==
LOC: ER 13:20 → 8WST 14:48 → EDBEDREQTM 14:51 → EDBEDREQ 14:51 → ENRESERV 21:40
PROVIDERS: ADMIT Internal Medicine; ATTEND Internal Medicine
DX: M94.0 Chondrocostal junction syndrome [Tietze] (principal); E43 Unspecified severe protein-calorie malnutrition; I50.43 Acute on chronic combined systolic (congestive) and diastolic (congestive) heart failure; I24.9 Acute ischemic heart disease, unspecified; I11.0 Hypertensive heart disease with heart failure; D63.8 Anemia in other chronic diseases classified elsewhere; E11.9 Type 2 diabetes mellitus without complications; E78.00 Pure hypercholesterolemia, unspecified; E83.51 Hypocalcemia; E87.6 Hypokalemia; R74.01 Elevation of levels of liver transaminase levels; Z86.73 Personal history of transient ischemic attack (TIA), and cerebral infarction without residual deficits; Z79.899 Other long term (current) drug therapy; Z82.49 Family history of ischemic heart disease and other diseases of the circulatory system; Z68.21 Body mass index [BMI] 21.0-21.9, adult
CPT/HCPCS: 36415; 71045; 80053; 80305; 80320; 81003; 82550; 82553; 82607; 82746; 82962; 83540; 83550; 83605; 83735; 83880; 84100; 84484; 85025; 93005; 93306; 93970; 97162; 97166; 97530; 99285; J1650; J2405; J3480; J3490; G0480

== ENCOUNTER 2021-07-12 13:28 | Emergency (ER) | payer MEDICARE, MEDICAID ==
[~2021-07-12] VITALS: Ht 175.3 cm; Wt 65.0 kg
[~2021-07-12 13:28] MED LIST changes: +DIPH25CA83 MT; +FINA5TAB11 PO; +LACT10SO6 MT
[2021-07-12] MEDS ORDERED: LEVETIRACETAM 500MG PREMIX 100 ML IV ONE (14:30)
[2021-07-12 15:12] LABS: BASOPHILS % 0.4 % (0.0-2.0); EOSINOPHILS % 0.3 % (0.0-5.0); HEMATOCRIT. 37.7 % (42.0-52.0); HEMOGLOBIN. 12.3 g/dL (14.0-18.0); LYMPHOCYTES % 9.2 % (20.0-50.0); MEAN CORPUSCULAR HEMOGLOBIN 28.9 pg (28.0-32.0); MEAN CORPUSCULAR VOLUME 88.6 fL (80.0-94.0); MEAN PLATELET VOLUME 8.5 fl (7.4-10.4); MONOCYTES % 4.5 % (2.0-8.0); NEUTROPHILS % 85.6 % (40.0-76.0); PLATELET 405 x1000/uL (130-400); RED BLOOD CELL COUNT 4.25 mill/uL (4.7-6.1); RED CELL DISTRIBUTION WIDTH 17.3 % (11.6-14.6)
[2021-07-12 15:17] LABS: CHLORIDE 105 mEq/L (98-107)
[2021-07-12 15:21] LABS: ETHANOL BLOOD < 10 mg/dL
[2021-07-12] MEDS ORDERED: LEVETIRACETAM 500MG PREMIX 100 ML IV NR (16:45)
[2021-07-12] MEDS ORDERED: POTASSIUM CHLORIDE 20MEQ TABLET SR PO ONE (17:30)
[2021-07-12 22:10] VITALS: BP 140/85
== END 2021-07-12 22:26 | disposition home or self-care (01) ==
LOC: ER 13:28
DX: G40.909 Epilepsy, unspecified, not intractable, without status epilepticus (principal); E87.6 Hypokalemia; Z79.899 Other long term (current) drug therapy; I11.0 Hypertensive heart disease with heart failure; I50.9 Heart failure, unspecified
CPT/HCPCS: 36415; 80053; 80320; 85025; 99284; J1953; G0480